=== PATIENT | female | born 1940 | race Caucasian/White ===

== ENCOUNTER → 2019-08-28 12:09 | Outpatient (BNVA) | payer MEDICARE, SELFPAY | PROVIDERS: Family Provider Nurse Practitioner Family; PCP Nurse Practitioner Family; Visit Provider Nurse Practitioner Family | DX: N63.0 Unspecified lump in unspecified breast (principal); H66.93 Otitis media, unspecified, bilateral; G89.29 Other chronic pain; I10 Essential (primary) hypertension; M54.6 Pain in thoracic spine; M54.5 Low back pain; M54.9 Dorsalgia, unspecified; R42 Dizziness and giddiness; E55.9 Vitamin D deficiency, unspecified; Z79.899 Other long term (current) drug therapy; E78.2 Mixed hyperlipidemia; R53.83 Other fatigue | CPT/HCPCS: 80053; 80061; 81001; 82306; 83036; 84443; 85025 ==

== ENCOUNTER 2019-09-02 14:36 | Emergency (ER) | payer MEDICARE, SELFPAY ==
[2019-09-02 14:37] VITALS: BP 195/86; PULSE 73; RESP 16; TEMP 36.6; O2SAT 98; BMI 22.8
--- NOTE | 2019-09-02 14:44 | ED_ITS ---
Entered by Chrissie Card, acting as scribe for Kristi MengDO Sep 02, 2019 14:36 HPI - Dizziness General: Chief Complaint: Dizziness Stated Complaint: DIZZY; HYPERTENSION Time Seen by Provider: 09/02/19 14:42 Source: patient Mode of arrival: EMS Limitations: no limitations History of Present Illness: HPI Narrative: 79 yo f came to the er by [facility] for dizziness and HTN. 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 Pt states that she has been having high blood pressure this morning. Pt noticed this morning that the room was spinning, pt said that she has had a ear infection and has not been getting any better and has been on 2 rounds of antibiotics and has not been doing any good. Pt said that with being dizzy she felt a little weird in her head, but wouldn't call it a headache. MD elicited complaint: dizziness and other (htn) Pertinent past history: inner ear problems (ear infection ) Onset (ago): day(s) (this morning) Timing: sudden onset Severity: mild Description: room spinning Context: change in medication (for ear infection ) History of similar symptoms: No Exacerbating factors: movement/ambulation and standing Relieving factors: remaining still Associated symptoms: Reports no associated symptoms and headache(s) (mild); Denies chest pain, chills, nausea or vomiting Associated neuro symptoms: Reports no associated symptoms Review of Systems General: Reports: other (negative unless marked) Const: Denies: fever, chills or fatigue Eyes: Reports: other ENMT: Denies: throat pain Card: Denies: chest pain or swelling of feet/ankles Resp: Reports: shortness of breath (mild) GI: Denies: abdominal pain, nausea, vomiting, diarrhea, constipation or blood in stool : Denies: difficulty urinating Musc: Denies: back pain or extremity swelling Skin/Breast: Denies: rash Neuro: Reports: headache (mild) and dizziness PFSH ED PFSH: Medical History Anxiety Essential hypertension Surgical History S/P gastric surgery Social History Smoking and tobacco status: never smoked Second hand smoke exposure: No Smoking risk assessment/counseling performed?: No Alcohol intake: never Desire information about alcohol rehabilitation?: No Counseling given: No Desire information about substance/drug rehabilitation?: No Counseling given: No Physical Exam Const: COMMON NORMALS: no apparent distress and oriented x3 GENERAL APPEARANCE: cooperative; not in distress HENMT: COMMON NORMALS: normocephalic HEAD & SCALP: normal to inspection and normocephalic MOUTH: oral and palatal mucosa normal and lip normal THROAT: posterior oropharynx normal and tonsils normal Neck/C-Spine: COMMON NORMALS: full ROM, no lymphadenopathy, supple and no meningeal signs GENERAL: Yes normal visual inspection and Yes trachea midline Chest: COMMONS NORMALS: inspection of chest normal Resp: COMMON NORMALS: normal respiratory effort, no retractions and clear to auscultation bilaterally EFFORT & INSPECTION: Yes able to speak in complete sentences and No respiratory distress AUSCULTATION: clear to auscultation bilaterally, no rales, no rhonchi and no wheezes Cardio: COMMON NORMALS: regular rate, regular rhythm, S1 normal heart sound and S2 normal heart sound PALPATION: normal PMI RATE: regular rate RHYTHM: regular rhythm HEART SOUNDS: S1 normal and S2 normal PERIPHERAL PULSES: radial pulses present and dorsalis pedis pulses present GI: COMMON NORMALS: normal to inspection, nondistended, normoactive bowel sounds and soft to palpation INSPECTION: Yes normal to inspection AUSCULTATION: Yes normoactive bowel sounds PALPATION: Yes soft RECTAL EXAM: deferred : COMMON NORMALS: Yes no CVA tenderness BLADDER/KIDNEY EXAM: Yes no CVA tenderness Back/Pelvis: COMMON NORMALS: no CVA tenderness Extremity: COMMON NORMALS: normal to inspection, full ROM, normal capillary refill, no calf tenderness and no pedal edema Neuro: COMMON NORMALS: oriented x3, CN's II-XII intact bilaterally, moves all extremities and no focal motor deficits MENINGEAL SIGNS: Yes no meningeal signs Skin: COMMON NORMALS: no rashes or lesions noted GENERAL SKIN EXAM: no rashes or lesions noted Course Vital Signs: Vital signs: Vital Signs Temperature 97.9 F 09/02/19 14:37 Pulse Rate 73 09/02/19 14:37 Respiratory Rate 16 09/02/19 14:37 Blood Pressure 195/86 09/02/19 14:37 Pulse Oximetry 98 09/02/19 14:37 MDM - Dizziness MDM Narrative: Medical decision making narrative: pt has some signs of sinusits on ct but no clinical symptoms, she has vertigo however so I will refer her to ENT and try her on meclizine, her bp is 126/72. Lab Data: Attestation: I reviewed the patient's lab results. Labs: Lab Results 09/02/19 09/02/19 09/02/19 Range/Units 13:35 13:35 13:35 WBC 6.4 (4.0-10.0) 10^3/ uL RBC 4.43 (4.1-5.3) 10^6/u L Hgb 13.5 (11.5-15.3) g/dL Hct 41.1 (37.0-47.0) % MCV 92.8 (81-99) fL MCH 30.5 (28.0-34.0) pg MCHC 32.8 (30.0-36.0) g/dL RDW 13.1 (12.1-15.1) % Plt Count 343 (130-400) 10^3/c mm MPV 10.2 (7.4-10.4) fL Neut % (Auto) 63.5 % Lymph % (Auto) 22.7 % [place] % (Auto) 8.3 % Eos % (Auto) 4.4 % Baso % (Auto) 0.9 % Neut # (Auto) 4.0 (1.8-7.7) 10^3/u L Lymph # (Auto) 1.4 (0.8-4.8) 10^3/u L [place] # (Auto) 0.5 (0.2-0.9) 10^3/u L Eos # (Auto) 0.3 (0.0-0.8) 10^3/u L Baso # (Auto) 0.1 (0.0-0.1) 10^3/u L Nucleated RBC % (a uto) 0 % Nucleated RBCs # 0.0 /100WBC Sodium 137 (136-145) mmol/L Potassium 4.5 (3.5-5.1) mmol/L Chloride 99 (98-107) mmol/L Carbon Dioxide 28 (22-29) mmol/L Anion Gap 14.5 (5-19) BUN 14 (8-23) mg/dL Creatinine 0.9 (0.5-0.9) mg/dL Glucose 122 H (65-115) mg/dL Calculated Osmolal ity 282 L (285-295) mOsm/k g Calcium 10.1 (8.5-10.5) mg/dL Total Bilirubin 0.3 (0.15-1.2) mg/dL AST 19 (0-32) U/L ALT 10 (0-33) U/L Alkaline Phosphata se 82 (35-105) IU/L Troponin T Baselin e 7 (0-10) ng/mL Total Protein 7.2 (6.6-8.7) g/dL Albumin 4.7 (3.5-5.2) g/dL Globulin 2.5 (1.3-4.6) g/dL Imaging Data^: CXR: Radiologist's impression: [place] [address] XRay Report Signed Patient: Yaquelin Arango #: [id number] : 1Acct#:[id number] Age/Sex: 79 / FADM Date: 09/02/19 Loc: [facility]/Bed: Attending Dr: Ordering Provider/Ordering MD: Kristi Meng DO Date of Service: 09/02/19 Procedure(s): XR chest 1V portable [id number] Accession Number(s): [id number] Report Number: [id number] PROCEDURE INFORMATION: Exam: XR Chest, 1 View Exam date and time: 09/02/2019 2:55 PM Age: 79 years old Clinical indication: Shortness of breath and other: Dizzy; Additional info: Shortnes of breath TECHNIQUE: Imaging protocol: XR of the chest Views: 1 view. COMPARISON: CR Chest 1 [place] [id number] 03/09/2018 12:42 PM FINDINGS: Lungs: There is mild hyperinflation with unchanged coarse interstitial markings. No focal consolidation. Pleural space: No pleural effusion. No pneumothorax. Heart/Mediastinum: Unchanged tortuosity of the descending thoracic aorta. No cardiomegaly. Bones/joints: Unremarkable for technique. XR/XR chest 1V portable [id number] IMPRESSION: No acute findings. Dictated By:Luis Gaitan MD Signed By:Luis Gaitan MDSigned Date/Time:09/02/19 1533 DD/ 1532 CT Head: Radiologist's impression: [address] [place] [address] CT Scan Report Signed Patient: Yaquelin Arango #: [id number] : 1Acct#:[id number] Age/Sex: 79 / FADM Date: 09/02/19 Loc: [facility]/Bed: Attending Dr: Ordering Provider/Ordering MD: Kristi Meng DO Date of Service: 09/02/19 Procedure(s): CT head wo con* [id number] Accession Number(s): [id number] Report Number: [id number] PROCEDURE INFORMATION: Exam: CT Head Without Contrast Exam date and time: 09/02/2019 3:19 PM Age: 79 years old Clinical indication: Dizziness; Prior surgery; Surgery date: 1-6 months; Surgery type: Orbit TECHNIQUE: Imaging protocol: Computed tomography of the head without contrast. Total DLP: 799.99 mGy-cm Radiation optimization: All CT scans at this facility use at least one of these dose optimization techniques: automated exposure control; mA and/or kV adjustment per patient size (includes targeted exams where dose is matched to clinical indication); or iterative reconstruction. COMPARISON: CT head wo con* [id number] 03/09/2018 2:20 PM FINDINGS: Brain: There is no evidence of acute intracranial hemorrhage, midline shift or mass effect. There are stable scattered and confluent hypoattenuating regions within the subcortical and periventricular white matter, which are non specific and are most commonly associated with chronic microvascular ischemic change. Ventricles: There is unchanged parenchymal volume loss with compensatory prominence of the ventricles and CSF containing spaces. Bones/joints: No acute fracture. Postoperative changes involving the right orbit are again noted. Sinuses: There is mild pansinus mucosal thickening with small air-fluid levels within the right maxillary and sphenoid sinuses. Mastoid air cells: Visualized mastoid air cells are well aerated. Orbits: Postoperative change involving the right orbit is again noted. Soft tissues: Unremarkable. Vasculature: Atherosclerotic calcifications are noted. Other findings: There is no CT evidence of an acute transcortical infaction. CT/CT head wo con* [id number] IMPRESSION: 1. Essentially stable examination without CT evidence of an acute intracranial process. 2. Pansinus mucosal thickening with small air-fluid levels within the right maxillary and sphenoid sinuses. Findings may reflect a component of acute on chronic inflammatory or infectious change versus a small amount of residual postoperative hemorrhage. Radiation Dose CTDIVOL = (mGy): DLP = 799.99 (mGy-cm) Dictated By:Luis Gaitan MD Signed By:Luis Gaitan MDSigned Date/Time:09/02/191553 DD/ 52 Discharge Plan Discharge Patient Disposition: Home, Self-Care Clinical Impression: Essential hypertension, Benign paroxysmal positional vertigo Condition: Stable Prescriptions: New meclizine 25 mg tablet 50 mg PO TID PRN (Reason: dizziness) Qty: 60 RF: 0 No Action montelukast 10 mg tablet 10 mg PO DAILY PRN (Reason: unknown) RF: 0 propranolol 40 mg tablet 40 mg PO BID RF: 0 Colace 100 mg Capsule 100 mg PO BID RF: 0 Calcium Citrate + D 315-200 mg-unit Tablet 1 tab PO BID RF: 0 Probiotic 3 billion cell Capsule 3,000 mmu cells PO DAILY RF: 0 Bariatric Multivitamins 45 mg iron- 800 mcg-120 mcg Capsule 1 cap PO DAILY RF: 0 Discharge Orders: Discharge Order (Routine); Ordered 09/02/19 Ordered By: Kristi Meng Referrals: Raquel Buenrostro FNP [Family Provider] - 1-3 days Manda Stiles FNP [Primary Care Provider] - Discharge Diet: Advance as tolerated Discharge Activity: Increase activity as tolerated Patient Instructions: Benign Paroxysmal Positional Vertigo (ED) Activity Restrictions/Additional Instructions: no driving while you have the symptoms. return if worse, any problem, any change, Coding Level of Care Code ED Phone Screener for Chg Fwd Exam Comprehensive The documentation recorded by the Kyaw horne Stephanie Lyn, accurately reflects the service I personally performed and the decisions made by Taqueria bryant Sonia M, DO Sep 02, 2019 14:36
--- NOTE | 2019-09-02 14:52 | CTR_ITS ---
PROCEDURE INFORMATION: Exam: CT Head Without Contrast Exam date and time: 09/02/2019 3:19 PM Age: 79 years old Clinical indication: Dizziness; Prior surgery; Surgery date: 1-6 months; Surgery type: Orbit TECHNIQUE: Imaging protocol: Computed tomography of the head without contrast. Total DLP: 799.99 mGy-cm Radiation optimization: All CT scans at this facility use at least one of these dose optimization techniques: automated exposure control; mA and/or kV adjustment per patient size (includes targeted exams where dose is matched to clinical indication); or iterative reconstruction. COMPARISON: CT head wo con* [id number] 03/09/2018 2:20 PM FINDINGS: Brain: There is no evidence of acute intracranial hemorrhage, midline shift or mass effect. There are stable scattered and confluent hypoattenuating regions within the subcortical and periventricular white matter, which are non specific and are most commonly associated with chronic microvascular ischemic change. Ventricles: There is unchanged parenchymal volume loss with compensatory prominence of the ventricles and CSF containing spaces. Bones/joints: No acute fracture. Postoperative changes involving the right orbit are again noted. Sinuses: There is mild pansinus mucosal thickening with small air-fluid levels within the right maxillary and sphenoid sinuses. Mastoid air cells: Visualized mastoid air cells are well aerated. Orbits: Postoperative change involving the right orbit is again noted. Soft tissues: Unremarkable. Vasculature: Atherosclerotic calcifications are noted. Other findings: There is no CT evidence of an acute transcortical infaction. CT/CT head wo con* [id number] IMPRESSION: 1. Essentially stable examination without CT evidence of an acute intracranial process. 2. Pansinus mucosal thickening with small air-fluid levels within the right maxillary and sphenoid sinuses. Findings may reflect a component of acute on chronic inflammatory or infectious change versus a small amount of residual postoperative hemorrhage. Radiation Dose CTDIVOL = (mGy): DLP = 799.99 (mGy-cm)
--- NOTE | 2019-09-02 14:52 | XRR_ITS ---
PROCEDURE INFORMATION: Exam: XR Chest, 1 View Exam date and time: 09/02/2019 2:55 PM Age: 79 years old Clinical indication: Shortness of breath and other: Dizzy; Additional info: Shortnes of breath TECHNIQUE: Imaging protocol: XR of the chest Views: 1 view. COMPARISON: CR Chest 1 [place] [id number] 03/09/2018 12:42 PM FINDINGS: Lungs: There is mild hyperinflation with unchanged coarse interstitial markings. No focal consolidation. Pleural space: No pleural effusion. No pneumothorax. Heart/Mediastinum: Unchanged tortuosity of the descending thoracic aorta. No cardiomegaly. Bones/joints: Unremarkable for technique. XR/XR chest 1V portable [id number] IMPRESSION: No acute findings.
--- NOTE | 2019-09-02 14:53 | ECG_ITS ---
Measurements Intervals [place] Rate: 66 P: 41 TX: 185 QRS: 11 QRSD: 69 T: 53 QT: 392 QTc: 412 SINUS RHYTHM Compared to ECG 03/09/2018 12:36:47 No significant changes Electronically Signed On 09-03-2019 17:20:46 CDT by Jewel Hu M.D. [email or web address]
[2019-09-02] MEDS: nitroglycerin 0.4 mg sublingual Tablet SUBLINGUAL (15:09)
[2019-09-02 15:13] LABS: Basophils # 0.1 10^3/uL (0.0-0.1); Basophils % 0.9 %; Eosinophils # 0.3 10^3/uL (0.0-0.8); Eosinophils % 4.4 %; Hematocrit 41.1 % (37.0-47.0); Hemoglobin 13.5 g/dL (11.5-15.3); Lymphocytes # 1.4 10^3/uL (0.8-4.8); Lymphocytes % 22.7 %; Mean Corpuscular HGB Conc 32.8 g/dL (30.0-36.0); Mean Corpuscular Hemoglobin 30.5 pg (28.0-34.0); Mean Corpuscular Volume 92.8 fL (81-99); Mean Platelet Volume 10.2 fL (7.4-10.4); Monocytes # 0.5 10^3/uL (0.2-0.9); Monocytes % 8.3 %; Neutrophils % 63.5 %; Nucleated Red Blood Cells % 0 %; Platelet Count 343 10^3/cmm (130-400); Red Blood Count 4.43 10^6/uL (4.1-5.3); Red Cell Distribution Width 13.1 % (12.1-15.1); White Blood Count 6.4 10^3/uL (4.0-10.0)
[2019-09-02 15:38] LABS: Alanine Aminotransferase 10 U/L (0-33); Albumin Level 4.7 g/dL (3.5-5.2); Alkaline Phosphatase 82 IU/L (35-105); Anion Gap 14.5 (5-19); Aspartate Amino Transferase 19 U/L (0-32); Blood Urea Nitrogen 14 mg/dL (8-23); Calcium 10.1 mg/dL (8.5-10.5); Carbon Dioxide 28 mmol/L (22-29); Chloride 99 mmol/L (98-107); Globulin 2.5 g/dL (1.3-4.6); Glucose 122 mg/dL (65-115); Osmolality Calculated 282 mOsm/kg (285-295); Potassium 4.5 mmol/L (3.5-5.1); Sodium 137 mmol/L (136-145); Total Bilirubin 0.3 mg/dL (0.15-1.2); Total Protein 7.2 g/dL (6.6-8.7)
[2019-09-02 15:39] LABS: Troponin(5th) Baseline 7 ng/mL (0-10)
[2019-09-02 15:52] LABS: Add Urine Microscopic? NO
[2019-09-02 16:02] LABS: Urine Appearance Clear (CLEAR); Urine Color Yellow (Yellow); pH Urine 6.5 (5-7)
[2019-09-02 16:03] LABS: Bilirubin Urine Neg (NEGATIVE); Blood Urine Neg (Negative); Glucose Urine UA Norm (Normal); Ketones Urine Negative (Negative); Leukocyte Esterase Urine Negative (Negative); Nitrate Urine Negative (Negative); Protein Urine Neg (Negative); Urobilinogen Urine Norm (Negative)
[2019-09-02 16:07] LABS: Troponin 5 2HR 6.39 ng/mL (0-10)
[2019-09-02 16:13] LABS: Troponin 5 2HR Delta -0.61 ABS# (0-10)
[2019-09-02 16:19] VITALS: BP 126/85; PULSE 70; RESP 16; O2SAT 97
== END 2019-09-02 16:20 | disposition home or self-care (01) ==
PROVIDERS: Emergency Provider Emergency Medicine; Family Provider Nurse Practitioner Family; PCP Nurse Practitioner Family
DX: H81.10 Benign paroxysmal vertigo, unspecified ear (principal); I10 Essential (primary) hypertension
CPT/HCPCS: 12345; 36415; 70450; 71045; 80053; 81003; 84484; 85025; 93005; 99282; 99284

== ENCOUNTER → 2020-03-11 11:41 | Outpatient (BNVA) | payer MEDICARE, SELFPAY | PROVIDERS: Family Provider Nurse Practitioner Family; PCP Nurse Practitioner Family; Visit Provider Nurse Practitioner Family | DX: K92.1 Melena (principal) | CPT/HCPCS: 80053; 82272; 85025 ==

== ENCOUNTER 2020-03-31 08:57 | Outpatient (CLI) | payer MEDICARE, SELFPAY ==
--- NOTE | 2020-03-31 09:30 | MM_ITS ---
WS: [id number] BILATERAL DIGITAL DIAGNOSTIC MAMMOGRAM MAMMOGRAPHY WITH CAD CLINICAL INFORMATION: Breast tendernes HISTORY: Right breast pain COMPARISON: None. TECHNIQUE: Bilateral CC, MLO, and ML views. FINDINGS: The breasts are composed of heterogeneous fibroglandular density, which can limit the detection of sm all underlying mass lesions. Vascular calcification. Tiny punctate calcifications. Asymmetric density upper outer LEFT breast measuring 6 mm best seen on the ML view. Recommend spot compression views an d ultrasound for further evaluation. ULTRASOUND BREAST RIGHT TECHNIQUE: Ultrasound right breast focused area of concern. CLINICAL INFORMATION: Breast tenderness COMPARISON: None. FINDINGS: Ultrasound right breast upper outer quadrant patient directed area of pain. Tiny cyst at the 9:00 pos ition near the areola in the area of pain measuring 3.3 x 1.9 x 4.8 mm. Additional smaller cyst measu ring 2.1 x 2.5 x 2.4 mm. No suspicious abnormalities. No lesions to target for biopsy. MM/[place] [id number] IMPRESSION: BI-RADS: 0-Incomplete: Need additional imaging evaluation FOLLOW UP: Need Additional Imaging Recommend LEFT diagnostic mammography and ultrasound for evaluation 6 mm asymme tric density left breast
--- NOTE | 2020-03-31 10:15 | US_ITS ---
WS: [id number] BILATERAL DIGITAL DIAGNOSTIC MAMMOGRAM MAMMOGRAPHY WITH CAD CLINICAL INFORMATION: Breast tendernes HISTORY: Right breast pain COMPARISON: None. TECHNIQUE: Bilateral CC, MLO, and ML views. FINDINGS: The breasts are composed of heterogeneous fibroglandular density, which can limit the detection of sm all underlying mass lesions. Vascular calcification. Tiny punctate calcifications. Asymmetric density upper outer LEFT breast measuring 6 mm best seen on the ML view. Recommend spot compression views an d ultrasound for further evaluation. ULTRASOUND BREAST RIGHT TECHNIQUE: Ultrasound right breast focused area of concern. CLINICAL INFORMATION: Breast tenderness COMPARISON: None. FINDINGS: Ultrasound right breast upper outer quadrant patient directed area of pain. Tiny cyst at the 9:00 pos ition near the areola in the area of pain measuring 3.3 x 1.9 x 4.8 mm. Additional smaller cyst measu ring 2.1 x 2.5 x 2.4 mm. No suspicious abnormalities. No lesions to target for biopsy. US/US breast RT limited* [id number] IMPRESSION: BI-RADS: 0-Incomplete: Need additional imaging evaluation FOLLOW UP: Need Additional Imaging Recommend LEFT diagnostic mammography and ultrasound for evaluation 6 mm asymme tric density left breast
== END 2020-03-31 08:58 | disposition home or self-care (01) ==
LOC: RADSHAW 08:59
PROVIDERS: PCP Nurse Practitioner Family; Visit Provider Nurse Practitioner Family
DX: N64.4 Mastodynia (principal); N64.89 Other specified disorders of breast
CPT/HCPCS: 76642; 77066

== ENCOUNTER 2020-04-24 09:17 | Outpatient (CLI) | payer MEDICARE, SELFPAY ==
--- NOTE | 2020-04-24 09:30 | MM_ITS ---
WS: [id number] LEFT DIGITAL MAMMOGRAPHY WITH CAD CLINICAL INFORMATION: valuation 6 mm asymmetric density left breast COMPARISON: March 31, 2020 TECHNIQUE: 1 views of the left breast were obtained. FINDINGS: Scattered fibroglandular densities of the left breast. Vascular calcification. Again seen is the 6 mm asymmetric density upper outer left breast. This persists on spot compression views. Ultrasound is p ending. ULTRASOUND BREAST LEFT TECHNIQUE: Ultrasound left breast focused area of concern. CLINICAL INFORMATION: valuation 6 mm asymmetric density left breast COMPARISON: None. FINDINGS: Ultrasound left breast 10 to 2:00 position. No cystic or solid lesions. Dense underlying parenchymal tissue. No pathologic lesions. No lesions to target for biopsy. MM/[place] [id number] IMPRESSION: BI-RADS: 2-Benign FOLLOW UP: 1 Year Follow-up Recommend return to annual screening mammography.
--- NOTE | 2020-04-24 10:15 | US_ITS ---
WS: [id number] LEFT DIGITAL MAMMOGRAPHY WITH CAD CLINICAL INFORMATION: valuation 6 mm asymmetric density left breast COMPARISON: March 31, 2020 TECHNIQUE: 1 views of the left breast were obtained. FINDINGS: Scattered fibroglandular densities of the left breast. Vascular calcification. Again seen is the 6 mm asymmetric density upper outer left breast. This persists on spot compression views. Ultrasound is p ending. ULTRASOUND BREAST LEFT TECHNIQUE: Ultrasound left breast focused area of concern. CLINICAL INFORMATION: valuation 6 mm asymmetric density left breast COMPARISON: None. FINDINGS: Ultrasound left breast 10 to 2:00 position. No cystic or solid lesions. Dense underlying parenchymal tissue. No pathologic lesions. No lesions to target for biopsy. US/US breast LT limited* [id number] IMPRESSION: BI-RADS: 2-Benign FOLLOW UP: 1 Year Follow-up Recommend return to annual screening mammography.
== END 2020-04-24 09:18 | disposition home or self-care (01) ==
LOC: RADSHAW 09:21
PROVIDERS: PCP Nurse Practitioner Family; Visit Provider Nurse Practitioner Family
DX: R92.8 Other abnormal and inconclusive findings on diagnostic imaging of breast (principal); N64.89 Other specified disorders of breast
CPT/HCPCS: 76642; 77065

== ENCOUNTER → 2020-05-02 10:45 | Outpatient (BNVA) | payer MEDICARE, SELFPAY | PROVIDERS: PCP Nurse Practitioner Family; Visit Provider Nurse Practitioner Family | DX: Z11.59 Encounter for screening for other viral diseases (principal); K92.1 Melena | CPT/HCPCS: 87635 ==

== ENCOUNTER 2020-05-05 07:44 | Day surgery (SDC) | payer MEDICARE, SELFPAY ==
[2020-05-01 10:54] VITALS: BMI 22.6
[2020-05-05] MEDS: sodium chloride 0.9% 1,000 ML 30 ML IV (07:40)
[2020-05-05 08:13] VITALS: BP 169/98; PULSE 68; RESP 18; TEMP 37.4; O2SAT 99
--- NOTE | 2020-05-05 08:34 | ANES.PREANE2 ---
Pre-Anesthetic Assessment Pre-Anesthetic Assessment: Height/Weight: Height 1.55 m Weight 54.431 kg Temp Pulse Resp BP Pulse Ox 99.3 F 68 18 169/98 99 05/05/20 08:13 05/05/20 08:13 05/05/20 08:13 05/05/20 08:13 05/05/20 08:13 Preop Diagnosis: melena Proposed Procedure: Operation Date: 05/05/20 09:00 Proposed Procedures p EGD 82647 K92.1(Not Applicable) - Enrique Gómez MD Familial anesthetic complications: None Was Beta Jeimy taken within 24 hours: Yes Last intake: Intake Last Liquid Date 05/04/20 Last Liquid Time 17:00 Last Solid Date 05/04/20 Last Solid Time 17:00 Social: Social History: No alcohol and No tobacco Exam: Pre-Anes Outpt Exam: alert, oriented x 3, clear to auscultation bilaterally and regular rate & rhythm Airway: Cervical ROM: WNL MP: 2 Dentition: False CV/HEM: CV/HEM: HTN Comments: mitral valve prolapse on propanolol, denies any espidoes of syncope,SOB, or chest pain GI: Comments: s/p gastric surgery Anesthetic Plan: ASA status: 2 Anesthesia: MAC Risk of > 500 ml blood loss (7ml/kg in children): No Meds/Allergies Current Medications: Current Medications Generic Name Dose Route Start Last Admin Trade Name Freq PRN Reason Stop Dose Admin Sodium Chloride 500 mls @ 999 mls /hr 05/05/20 07:52 05/05/20 08:12 Sodium Chloride 0.9% IV 999 mls/hr .Q31M PRN Administration HYPOTENSION PFSH Anesthesia PFSH: Medical History Anxiety Essential hypertension Surgical History S/P gastric surgery Social History (Updated 04/29/20 @ 11:[address]) Smoking and tobacco status: never smoked Second hand smoke exposure: No Smoking risk assessment/counseling performed?: No Alcohol intake: never Desire information about alcohol rehabilitation?: No Counseling given: No Desire information about substance/drug rehabilitation?: No Counseling given: No History of recent travel: No Data Anesthesia Cardiac Studies: No Data to Display
--- NOTE | 2020-05-05 09:04 | W.PM.OPSUD ---
Surgery/Procedure H&P Update DATE OF PROCEDURE: May 05, 2020 DATE H&P PERFORMED: 04/29/20 PREOP DIAGNOSIS: melena PLANNED PROCEDURE: Operation Date: 05/05/20 09:00 Proposed Procedures p EGD 24204 K92.1(Not Applicable) - Enrique Gómez MD
[2020-05-05 09:18] VITALS: BP 147/74; PULSE 65; RESP 18; TEMP 36.1; O2SAT 98
[2020-05-05 09:31] VITALS: BP 155/86; PULSE 57; RESP 18; O2SAT 97
--- NOTE | 2020-05-05 14:12 | ANE.PACU2 ---
Inpatient post-anesthesia follow up: Airway intact: Yes Vital signs: Temperature 97 F Pulse Rate 57 Respiratory Rate 18 Blood Pressure 155/86 Pulse Oximetry 97 Oxygen Delivery Me thod Room Air Oxygen Flow Rate 3 Fraction of Inspir ed Oxygen Hydration adequate: Yes Nausea and vomiting: No Pain level: 1 Mental status: Baseline
== END 2020-05-05 09:55 | disposition home or self-care (01) ==
PROVIDERS: PCP Nurse Practitioner Family; Visit Provider Internal Medicine
PROC: 0DJ08ZZ Inspection of Upper Intestinal Tract, Via Natural or Artificial Opening Endoscopic (ICD-10-PCS; CPT 43235; principal; 2020-05-05 09:00)
DX: K92.1 Melena (principal); I34.1 Nonrheumatic mitral (valve) prolapse; I10 Essential (primary) hypertension; Z90.3 Acquired absence of stomach [part of]
CPT/HCPCS: 12345; 43235; J2704; J7030; J7040

== ENCOUNTER → 2020-09-11 10:30 | Outpatient (BNVA) | payer MEDICARE, SELFPAY | PROVIDERS: PCP Nurse Practitioner Family; Visit Provider Nurse Practitioner Family | DX: I10 Essential (primary) hypertension (principal); E55.9 Vitamin D deficiency, unspecified; E78.2 Mixed hyperlipidemia; Z79.899 Other long term (current) drug therapy | CPT/HCPCS: 80053; 80061; 81003; 82306; 83036; 84443; 85025 ==

== ENCOUNTER → 2022-01-20 10:19 | Outpatient (BNVA) | payer MEDICARE, SELFPAY | PROVIDERS: PCP Nurse Practitioner Family; Visit Provider Nurse Practitioner | DX: E78.2 Mixed hyperlipidemia (principal); E55.9 Vitamin D deficiency, unspecified; I10 Essential (primary) hypertension | CPT/HCPCS: 80053; 80061; 81000; 82306; 83036; 84443; 85025 ==

== ENCOUNTER → 2022-04-29 13:47 | Outpatient (BNVA) | payer MEDICARE, SELFPAY | PROVIDERS: PCP Nurse Practitioner; Visit Provider Surgery | DX: K64.4 Residual hemorrhoidal skin tags (principal) | CPT/HCPCS: 99203 ==

== ENCOUNTER → 2022-06-01 10:47 | Outpatient (BNVA) | payer MEDICARE, SELFPAY | PROVIDERS: PCP Nurse Practitioner; Visit Provider Specialist | DX: G30.9 Alzheimer's disease, unspecified (principal); F02.80 Dementia in other diseases classified elsewhere, unspecified severity, without behavioral disturbance, psychotic disturbance, mood disturbance, and anxiety | CPT/HCPCS: 96116; 99205 ==

== ENCOUNTER → 2022-09-08 12:24 | Outpatient (BNVA) | payer MEDICARE, SELFPAY | PROVIDERS: PCP Nurse Practitioner; Visit Provider Specialist | DX: G30.9 Alzheimer's disease, unspecified (principal); F02.80 Dementia in other diseases classified elsewhere, unspecified severity, without behavioral disturbance, psychotic disturbance, mood disturbance, and anxiety | CPT/HCPCS: 96116; 99214 ==

== ENCOUNTER → 2022-10-05 15:02 | Outpatient (BNVA) | payer MEDICARE, SELFPAY | PROVIDERS: PCP Nurse Practitioner; Visit Provider Nurse Practitioner Family | DX: R06.00 Dyspnea, unspecified (principal); I10 Essential (primary) hypertension; R53.83 Other fatigue; R00.1 Bradycardia, unspecified | CPT/HCPCS: 80053; 80061; 83880; 85025 ==

== ENCOUNTER 2022-12-15 15:31 | Outpatient (CLI) | payer MEDICARE, SELFPAY ==
--- NOTE | 2022-12-15 15:51 | XR_ITS ---
WS: [id number] Exam: XR chest 2V* [id number] Date/Time of Exam: 12/15/2022 3:54 PM Reason For Exam: R06.00 - Dyspnea, unspecified Comparison 09/02/2019. The lungs are hyperinflated and clear. Normal cardiomediastinal silhouette. Regional bony elements ar e intact. Single low-grade compression deformity of the lower T-spine that may be T12. Increased thor acic kyphosis. XR/XR chest 2V* [id number] IMPRESSION: 1. Pulmonary hyperinflation which may indicate obstructive lung disease. No acu te cardiopulmonary finding.
== END 2022-12-15 15:32 | disposition home or self-care (01) ==
PROVIDERS: PCP Nurse Practitioner; Visit Provider Nurse Practitioner Family
DX: R06.00 Dyspnea, unspecified (principal); R91.8 Other nonspecific abnormal finding of lung field
CPT/HCPCS: 71046

== ENCOUNTER → 2023-02-28 15:09 | Outpatient (BNVA) | payer MEDICARE, SELFPAY | PROVIDERS: PCP Nurse Practitioner Family; Visit Provider Specialist | DX: R29.90 Unspecified symptoms and signs involving the nervous system (principal); G30.9 Alzheimer's disease, unspecified; F02.80 Dementia in other diseases classified elsewhere, unspecified severity, without behavioral disturbance, psychotic disturbance, mood disturbance, and anxiety | CPT/HCPCS: 99214 ==

== ENCOUNTER → 2023-03-02 17:22 | Outpatient (BNVA) | payer MEDICARE, SELFPAY | PROVIDERS: PCP Nurse Practitioner Family; Visit Provider Internal Medicine Pulmonary Disease | DX: J44.9 Chronic obstructive pulmonary disease, unspecified (principal); J30.1 Allergic rhinitis due to pollen; J82.83 Eosinophilic asthma; Z87.891 Personal history of nicotine dependence | CPT/HCPCS: 36415; 82785; 86003; 99204 ==

== ENCOUNTER 2023-03-16 13:42 | Outpatient (CLI) | payer MEDICARE, SELFPAY ==
[2023-03-16 14:27] VITALS: BP 143/95
== END 2023-03-16 13:43 | disposition home or self-care (01) ==
PROVIDERS: PCP Nurse Practitioner Family; Visit Provider Internal Medicine Pulmonary Disease
DX: R06.02 Shortness of breath (principal)
CPT/HCPCS: 94618

== ENCOUNTER → 2023-04-04 16:18 | Outpatient (BNVA) | payer MEDICARE, SELFPAY | PROVIDERS: PCP Nurse Practitioner Family; Visit Provider Nurse Practitioner Family | DX: I10 Essential (primary) hypertension (principal); E55.9 Vitamin D deficiency, unspecified; K64.4 Residual hemorrhoidal skin tags | CPT/HCPCS: 80053; 82306; 84443 ==

== ENCOUNTER 2023-06-02 08:00 | Outpatient (CLI) | payer MEDICARE, SELFPAY ==
--- NOTE | 2023-06-02 08:45 | USR_ITS ---
PROCEDURE INFORMATION: Exam: US Abdomen, Limited; Right Upper Quadrant Exam date and time: 06/02/2023 8:12 AM Age: 82 years old Clinical indication: Abdominal pain; Localized; Right upper quadrant (ruq); Additional info: R10.811 - right upper quadrant abdominal tenderness TECHNIQUE: Imaging protocol: Real time ultrasound of the abdomen with image documentation. Limited exam focused on the right upper quadrant. COMPARISON: No relevant prior studies available. FINDINGS: Liver: Normal. No masses. Gallbladder: Stones and sludge within the gallbladder. Biliary ducts: Normal. No stones. No dilation. Pancreas: Visualized pancreas is unremarkable. Right kidney: Normal. No mass. No hydronephrosis. US/US gall bladder [id number] IMPRESSION: Cholelithiasis.
== END 2023-06-02 08:01 | disposition home or self-care (01) ==
LOC: RAD 08:00
PROVIDERS: PCP Nurse Practitioner Family; Visit Provider Nurse Practitioner Family
DX: K80.20 Calculus of gallbladder without cholecystitis without obstruction (principal); R10.811 Right upper quadrant abdominal tenderness
CPT/HCPCS: 76705

== ENCOUNTER 2023-06-21 13:53 | Outpatient (CLI) | payer MEDICARE, SELFPAY ==
--- NOTE | 2023-06-21 14:15 | USCV_ITS ---
Yaquelin Arango Age: 83 Gender: F : 1940 Exam Date: 06/21/2023 14:41 Ordering Phys: Jose Rafael Charles MD Technologist: Irina Roberts [place]am Location: [facility] [place] [facility] [place] Indication: COPD, SOB BP: 142 / 78 HR: 70 Rhythm: Sinus Technical Quality: Adequate MEASUREMENTS (Male / Female) Normal Values 2D ECHO LV Diastolic Diameter PLAX 4.1 cm 4.2 - 5.9 / 3.9 - 5.3 cm LV Systolic Diameter PLAX 2.8 cm IVS Diastolic Thickness 1.2 cm 0.6 - 1.0 / 0.6 - 0.9 cm IVS Systolic Thickness 1.4 cm LVPW Diastolic Thickness 0.9 cm 0.6 - 1.0 / 0.6 - 0.9 cm LVPW Systolic Thickness 1.1 cm LVOT Diameter 2.0 cm LV Ejection Fraction 2D Teich 59.4 % LV Ejection Fraction MOD 2C 82.4 % LV Ejection Fraction 2C AL 82.9 % LA Diameter 3.4 cm LA Width 3.6 cm LA Height 4.3 cm RA Width 3.3 cm RA Height 3.9 cm Aorta at Sinotubular Diameter 2.2 cm IVC Diameter 1.3 cm M-MODE Aortic Annulus Diameter 2.3 cm LA Ao Ratio MM 1.5 MV E Point Septal Separation 0.6 cm DOPPLER AV Peak Velocity 188.0 cm/s LVOT Peak Velocity 130.0 cm/s AV Area Cont Eq vti 2.8 cm squared AV Area Cont Eq pk 2.2 cm squared MV Peak Velocity 114.0 cm/s MV Area PHT 3.3 cm squared Mitral E to A Ratio 0.7 MV E' Velocity 44.0 cm/s Mitral E to MV E' Ratio 10.1 Mitral E to LV E' Lateral Ratio 9.8 Mitral E to LV E' Septal Ratio 10.3 TR Peak Velocity 236.7 cm/s TR Peak Gradient 22.4 mmHg Right Atrial Pressure 5.0 mmHg Pulmonary Artery Systolic Pressu 27.4 mmHg PV Peak Velocity 109.0 cm/s RV Acceleration Time 0.1 s RV Ejection Time 0.3 s RV AcT/ET 0.4 FINDINGS Left Ventricle Left ventricle is normal size. LV systolic function is normal with EF of 60 to 65%. No regional wall motion normalities are seen. Grade 1 diastolic dysfunction Right Ventricle Normal in size and function Right Atrium Normal in size Left Atrium Normal in size Mitral Valve Structurally normal mitral valve. Mild mitral regurgitation. Aortic Valve Structurally normal aortic valve. No significant stenosis or regurgitation seen. Tricuspid Valve Mild tricuspid regurgitation. RVSP is normal. Pulmonic Valve Not well-visualized. Pericardium Normal Aorta Normal in size IVC Appears to be normal CONCLUSIONS LV systolic function is normal with EF of 60 to 65%. Grade 1 diastolic dysfunction. Mild mitral regurgitation. Mild tricuspid regurgitation. No comparison studies are available. Dillan Hall MD (Electronically Signed) Final Date: 25 June 2023 15:11 S
== END 2023-06-21 13:54 | disposition home or self-care (01) ==
LOC: RAD 13:53
PROVIDERS: PCP Nurse Practitioner Family; Visit Provider Internal Medicine Pulmonary Disease
DX: R07.89 Other chest pain (principal); J44.9 Chronic obstructive pulmonary disease, unspecified; I08.1 Rheumatic disorders of both mitral and tricuspid valves
CPT/HCPCS: 93306

== ENCOUNTER 2023-06-24 07:05 | Emergency (ER) | payer MEDICARE, SELFPAY ==
[2023-06-24 07:06] VITALS: BP 167/95; PULSE 73; RESP 18; TEMP 36.8; O2SAT 98; BMI 22.8
--- NOTE | 2023-06-24 07:09 | XRR_ITS ---
PROCEDURE INFORMATION: Exam: XR Chest Exam date and time: 06/24/2023 7:19 AM Age: 83 years old Clinical indication: Cough and dyspnea; Additional info: Dyspnea/cough TECHNIQUE: Imaging protocol: Radiologic exam of the chest. Views: 1 view. COMPARISON: CR XR chest 2V* [id number] 12/15/2022 3:53 PM FINDINGS: Lungs: Unremarkable. No consolidation. Pleural spaces: Unremarkable. No pleural effusion. No pneumothorax. Heart/Mediastinum: Unremarkable. No cardiomegaly. Bones/joints: Unremarkable. XR/XR chest 1V portable [id number] IMPRESSION: No acute findings.
--- NOTE | 2023-06-24 07:26 | ED_ITS ---
HPI - General Adult 2 General: Chief complaint: General Medical Stated complaint: Chest pain, Anxiety Time Seen by Provider: 06/24/23 07:08 Source: patient Mode of arrival: ambulatory History of Present Illness: 83-year-old female who presents to the e mergency room with complaints of rapid heart rate. She called EMS this morning complaining of chest discomfort and a rapid heart rate. When I asked why she had come in initially she was confused was not sure. She also states she was not sure who had called the ambulance on further questioning she states she had called the ambulance because she had a rapid heart rate and some chest discomfort they resolved evidently by the time EMS arrived per EMS report. She denies any discomfort or rapid heart rate now. She does relate she has a mitral valve prolapse. She also mention she is scheduled to have her gallbladder removed. She denied any abdominal pain bowel or bladder dysfunction when I seen her room. However noted that in the triage note she told him that she did have abdominal pain when I checked with the nurse regarding this the report was that she said she did have abdominal pain but it was her gallbladder it was scheduled to be removed and she did not need to be evaluated for that today. At this time she is awake and alert denying chest pain denying any orthopnea or shortness of breath but does states she had some shortness of breath earlier she has not had any fevers sweats or chills. Onset (ago): minute(s) Location: chest Severity: mild Pain Consistency: now resolved Relieving factors: none Exacerbating factors: none Associated symptoms: Reports confusion and palpitations; Deny chest pain, cough, diaphoresis, decreased appetite, dyspnea, fevers/chills, headache(s), malaise, nausea, rash, seizures, short of breath, syncope, vomiting, weakness or other Treatments prior to arrival: none Review of Systems 2 Const: Denies: fever(s), chills, malaise or diaphoresis Card: Reports: palpitations and irregular heart rhythm; Denies: chest pain or syncope Resp: Denies: dyspnea GI: Reports: abdominal pain; Denies: nausea or vomiting : Denies: dysuria, urinary frequency or urinary urgency Musc: Denies: neck pain or back pain Skin/Breast: Denies: rash Neuro: Reports: confusion; Denies: headache(s) [facility] ED 2 PFSH: Medical History Mitral valve prolapse Mixed hyperlipidemia Anxiety Essential hypertension Surgical History S/P bladder repair S/P gastric surgery Family History Mother Stroke Hypertension Denies family history of Diabetes Hyperlipidemia Lung disease Cancer Social History Smoking and tobacco/nicotine status: former use of tobacco/nicotine Quit status (tobacco/nicotine): has quit using Year quit tobacco: 2007 Former quit date comment: 0.5 ppd X 40 Second hand smoke exposure: No Alcohol intake: never Substance/Drug Use: never Adopted: No Lives independently: Yes Housing: House Do you think of yourself as: Straight/Heterosexual Current gender identity: Female Shirlene/Mosque: [employer] Physical Exam 2 Const: COMMON NORMALS: no acute distress GENERAL APPEARANCE: cooperative and comfortable ORIENTATION/CONSCIOUSNESS: Yes awake, Yes oriented to person, Yes oriented to place and Yes oriented to time HENMT: COMMON NORMALS: normocephalic, atraumatic and hearing grossly normal bilaterally HEAD & SCALP: normocephalic and atraumatic Resp: COMMON NORMALS: normal respiratory effort, No retractions, No use of accessory muscles and clear to auscultation bilaterally AUSCULTATION: clear to auscultation bilaterally Cardio: COMMON NORMALS: regular rate, regular rhythm and No murmurs present (Cardio) RATE: regular rate RHYTHM: regular rhythm GI: COMMON NORMALS: Soft to palpation and No hepatosplenomegaly present A USCULTATION: Yes normoactive bowel sounds PALPATION: Yes Soft to palpation, No Tenderness to palpation present (GI), No Guarding due to palpation present (GI) and Yes No hepatosplenomegaly present Extremity: COMMON NORMALS: normal to inspection, capillary refill normal, no clubbing, cyanosis or edema, no calf tenderness and no pedal edema Neuro: SENSORIUM/ORIENTATION: Yes oriented to person, Yes oriented to place and Yes oriented to time Skin: COMMON NORMALS: no rashes or lesions noted GENERAL SKIN EXAM: no rashes or lesions noted Course 2 Vital Signs: Vital signs: Vital Signs Temperature 98.2 F 06/24/23 07:06 Pulse Rate 75 06/24/23 11:00 Respiratory Rate 22 H 06/24/23 11:00 Blood Pressure 161/91 06/24/23 11:00 Pulse Oximetry 99 06/24/23 11:00 Oxygen Delivery Me thod Room Air 06/24/23 09:30 MDM - General Adult Medical Decision Making Her symptoms have completely resolved. Patient states she really did not want to come that she already get checked out by the EMS crew send had not wanted to come to the emergency room. EKG does not show any acute changes troponins are negative she had no further episodes of rapid heart rate since she arrived here. Will discharge the patient home set her up for an outpatient 48-hour Holter monitor and follow-up with her primary care doctor if she has any worsening or changes symptoms return. Medical Records I reviewed the patient's medical records. Lab Data I reviewed the patient's lab results. 06/24/23 05:55 06/24/23 05:55 Radiology Impressions Chest X-Ray 06/24/23 07:09 IMPRESSION: No acute findings. Laboratory Results WBC 7.07 10^3/uL (3.29-11.43) 06/24/23 05:55 RBC 4.48 10^6/uL (3.85-5.65) 06/24/23 05:55 Hgb 13.70 g/dL (11.27-16.99) 06/24/23 05:55 Hct 40.0 % (36-47) 06/24/23 05:55 MCV 89.3 fl (85-98) 06/24/23 05:55 MCH 30.6 pg (27-33) 06/24/23 05:55 MCHC 34.3 g/dL (30-55) 06/24/23 05:55 RDW 13.2 % (12.1-15.1) 06/24/23 05:55 Plt Count 339 10^3/cmm (157-399) 06/24/23 05:55 MPV 9.3 fL (7.4-10.4) 06/24/23 05:55 Neut % (Auto) 60.6 % 06/24/23 05:55 Lymph % (Auto) 22.3 % 06/24/23 05:55 Bartholomew % (Auto) 10.9 % 06/24/23 05:55 Eos % (Auto) 5.1 % 06/24/23 05:55 Baso % (Auto) 1.0 % 06/24/23 05:55 Neut # (Auto) 4.28 10^3/uL (1.8-7.7) 06/24/23 05:55 Lymph # (Auto) 1.6 10^3/uL (0.8-4.8) 06/24/23 05:55 Bartholomew # (Auto) 0.8 10^3/uL (0.2-0.9) 06/24/23 05:55 Eos # (Auto) 0.4 10^3/uL (0.0-0.8) 06/24/23 05:55 Baso # (Auto) 0.1 10^3/uL (0.0-0.1) 06/24/23 05:55 Nucleated RBC % (auto) 0 % 06/24/23 05:55 Nucleated RBCs # 0.0 /100WBC 06/24/23 05:55 Sodium 136 mmol/L (136-145) 06/24/23 05:55 Potassium 4.1 mmol/L (3.5-5.1) 06/24/23 05:55 Chloride 97 mmol/L (98-107) L 06/24/23 05:55 Carbon Dioxide 24 mmol/L (22-29) 06/24/23 05:55 Anion Gap 19.1 (5-19) H 06/24/23 05:55 BUN 8 mg/dL (8-23) 06/24/23 05:55 Creatinine 0.9 mg/dL (0.5-0.9) 06/24/23 05:55 GFR Calculation Not Reportable 06/24/23 05:55 Glucose 133 mg/dL (65-115) H 06/24/23 05:55 Calculated Osmolality 282 mOsm/kg (285-295) L 06/24/23 05:55 Calcium 10.2 mg/dL (8.5-10.5) 06/24/23 05:55 Total Bilirubin 0.5 mg/dL (0.15-1.2) 06/24/23 05:55 AST 22 U/L (0-32) 06/24/23 05:55 ALT 12 U/L (0-33) 06/24/23 05:55 Alkaline Phosphatase 86 U/L (35-105) 06/24/23 05:55 Troponin T Baseline 10 ng/L (0-10) 06/24/23 05:55 Troponin T 120 Minute 13.57 ng/L (0-10) H 06/24/23 07:46 Delta Troponin T 3.57 ABS# (0-10) 06/24/23 07:46 Total Protein 7.1 g/dL (6.6-8.7) 06/24/23 05:55 Albumin 4.6 g/dL (3.5-5.2) 06/24/23 05:55 Globulin 2.5 g/dL (1.3-4.6) 06/24/23 05:55 Urine Color Yellow (Yellow) 06/24/23 08:25 Urine Appearance Cloudy (CLEAR) A 06/24/23 08:25 Urine pH 9 (5-7) H 06/24/23 08:25 Ur Specific [place] 1.015 (1.005-1.030) 06/24/23 08:25 Urine Protein Trace (Negative) 06/24/23 08:25 Urine Glucose (UA) Norm (Normal) 06/24/23 08:25 Urine Ketones 1+ (Negative) H 06/24/23 08:25 Urine Blood Neg (Negative) 06/24/23 08:25 Urine Nitrate Negative (Negative) 06/24/23 08:25 Urine Bilirubin Neg (Negative) 06/24/23 08:25 Prot Sulfosalicylic Acd Negative (Negative) 06/24/23 08:25 Urine Urobilinogen Norm mg/dL (Negative) 06/24/23 08:25 Ur Leukocyte Esterase 2+ (Negative) H 06/24/23 08:25 Urine RBC 0-4 /hpf (0-2) H 06/24/23 08:25 Urine WBC 0-4 /hpf (0-5) H 06/24/23 08:25 Ur Squamous Epith Cells 0-4 /hpf (0-5) H 06/24/23 08:25 Amorphous Sediment Not Reportable 06/24/23 08:25 Urine Bacteria Y /hpf (NONE) 06/24/23 08:25 All radiology interpretation(s) finalized by discharge Discharge Plan Discharge Patient Disposition: Home Clinical Impression: Heart palpitations Condition: Stable Prescriptions: No Action cholecalciferol (vitamin D3) 125 mcg (5,000 unit) capsule 125 mcg PO DAILY albuterol sulfate [Ventolin HFA] 90 mcg/actuation HFA aerosol inhaler 1 inh inhalation QID PRN (Reason: shortness of breath or wheezing) Qty: 8.5 4RF nitroglycerin 0.4 mg tablet, sublingual 0.4 mg sublingual Q5M PRN (Reason: Chest Pain) Rx Instructions: do not exceed 3 doses per episode (DME) oxygen See Rx Instructions .Route .MEDSUPPLY Qty: 1 0RF Rx Instructions: pulse ox on RA with ambulation 83% pulse ox on 2 liters with ambulation 98% clopidogrel [Plavix] 75 mg tablet 75 mg PO DAILY Qty: 90 1RF galantamine 4 mg tablet 4 mg PO BID Qty: 6 0RF Rx Instructions: administer with AM and PM meals memantine [Namenda] 10 mg tablet 10 mg PO BID 90 Days Qty: 180 3RF calcium citrate-vitamin D3 [Calcium Citrate + D] 315-200 mg-unit Tablet 1 tab PO BID Bariatric Multivitamins 45 mg iron- 800 mcg-120 mcg Capsule 1 cap PO DAILY propranolol 10 mg tablet 10 mg PO BID lisinopril 30 mg tablet 30 mg PO DAILY montelukast 10 mg tablet 10 mg PO DAILY Discharge Orders: Discharge ED (Routine); Ordered 06/24/23 Ordered By: Trevin Cornelius Referrals: Diane Krueger FNP [Primary Care Provider] - Discharge Diet: Usual diet Discharge Activity: Increase activity as tolerated Patient Instructions: Opioid Safety, Pain Management Activity Restrictions/Additional Instructions: Thank you for choosing [facility] for your healthcare needs today. Please realize this is an emergency room and that we are providing you with a medical screening exam and this may not be complete and all inclusive of all the testing and or work up that you may need to determine your ailment or severity of your illness. It is very important that you follow up as instructed or that you return to the Emergency Department should you have concerns or if your condition changes or worsens in any way. You were seen today for complaints of palpitations your heart rhythm was normal while you are in the emergency room EKGs and troponins were unremarkable. We recommend that you have an outpatient Holter monitor to evaluate for episodes of rapid heart rate and follow-up with your primary care doctor. Coding Level of Care Code ED Basting Machine Operator for Rudi Mack
--- NOTE | 2023-06-24 07:27 | ECG_ITS ---
[facility] Test Date: 2023-06-24 Pat Name: Yaquelin Arango Department: Room: Gender: Female Road Maker: : 1940 Requested By: Trevin Erickson Order Number: [id number] Luis MD: Jaime Thompson M.D. Measurements Intervals [place] Rate: 71 P: 86 [place]: 175 QRS: 17 QRSD: 82 T: 51 QT: 372 QTc: 406 Interpretive Statements SINUS RHYTHM POSSIBLE RIGHT VENTRICULAR CONDUCTION DELAY [RSR (QR) IN V1/V2] SEPTAL MYOCARDIAL INFARCTION , OF INDETERMINATE AGE [40+ ms Q WAVE IN V1/V2] Compared to ECG 09/02/2019 15:35:44 Myocardial infarct finding now present Electronically Signed On 06-24-2023 16:37:13 CONVEYOR LOADER by Jaime Thompson M.D. [id number]
[2023-06-24 07:28] LABS: Basophils # 0.1 10^3/uL (0.0-0.1); Eosinophils # 0.4 10^3/uL (0.0-0.8); Eosinophils % 5.1 %; Lymphocytes # 1.6 10^3/uL (0.8-4.8); Lymphocytes % 22.3 %; Mean Corpuscular HGB Conc 34.3 g/dL (30-55); Mean Corpuscular Hemoglobin 30.6 pg (27-33); Mean Corpuscular Volume 89.3 fl (85-98); Mean Platelet Volume 9.3 fL (7.4-10.4); Monocytes # 0.8 10^3/uL (0.2-0.9); Monocytes % 10.9 %; Neutrophils # 4.28 10^3/uL (1.8-7.7); Neutrophils % 60.6 %; Nucleated Red Blood Cells % 0 %; Platelet Count 339 10^3/cmm (157-399); Red Blood Count 4.48 10^6/uL (3.85-5.65); Red Cell Distribution Width 13.2 % (12.1-15.1); White Blood Count 7.07 10^3/uL (3.29-11.43)
[2023-06-24 07:46] LABS: Alanine Aminotransferase 12 U/L (0-33); Albumin Level 4.6 g/dL (3.5-5.2); Alkaline Phosphatase 86 U/L (35-105); Anion Gap 19.1 (5-19); Aspartate Amino Transferase 22 U/L (0-32); Blood Urea Nitrogen 8 mg/dL (8-23); Calcium 10.2 mg/dL (8.5-10.5); Carbon Dioxide 24 mmol/L (22-29); Chloride 97 mmol/L (98-107); Globulin 2.5 g/dL (1.3-4.6); Glucose 133 mg/dL (65-115); Osmolality Calculated 282 mOsm/kg (285-295); Potassium 4.1 mmol/L (3.5-5.1); Sodium 136 mmol/L (136-145); Total Bilirubin 0.5 mg/dL (0.15-1.2); Total Protein 7.1 g/dL (6.6-8.7); Troponin(5th) Baseline 10 ng/L (0-10)
[2023-06-24 08:13] LABS: Troponin 5 2HR 13.57 ng/L (0-10); Troponin 5 2HR Delta 3.57 ABS# (0-10)
[2023-06-24 08:14] VITALS: BP 171/75; PULSE 76; RESP 15; O2SAT 97
[2023-06-24 08:52] LABS: Add Urine Culture? No; Add Urine Microscopic? YES; Bacteria Urine Y /hpf; Bilirubin Urine Neg (Negative); Blood Urine Neg (Negative); Glucose Urine UA Norm (Normal); Ketones Urine 1+ (Negative); Leukocyte Esterase Urine 2+ (Negative); Nitrate Urine Negative (Negative); Protein Urine Trace (Negative); RBC Urine 0-4 /hpf (0-2); Specific Gravity, Urine 1.015 (1.005-1.030); Squamous Epithelial Cell Urine 0-4 /hpf (0-5); Sulfosalicylic Acid Urine Negative (Negative); Urine Appearance Cloudy (CLEAR); Urine Color Yellow (Yellow); Urobilinogen Urine Norm (Negative); WBC Urine 0-4 /hpf (0-5); pH Urine 9 (5-7)
--- NOTE | 2023-06-24 09:22 | ECG_ITS ---
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 Measurements Intervals [place] Rate: 68 P: 53 [place]: 185 QRS: 21 QRSD: 78 T: 56 QT: 373 QTc: 397 Interpretive Statements SINUS RHYTHM SEPTAL MYOCARDIAL INFARCTION , OF INDETERMINATE AGE [40+ ms Q WAVE IN V1/V2] Compared to ECG 06/24/2023 07:27:21 No significant changes Electronically Signed On 06-24-2023 16:45:51 BOW MAKING MACHINE OPERATOR by Jaime Thompson M.D. [id number]
[2023-06-24 09:30] VITALS: BP 153/82; PULSE 72; RESP 18; O2SAT 97
[2023-06-24 11:00] VITALS: BP 161/91; PULSE 75; RESP 22; O2SAT 99
--- NOTE | 2023-06-28 08:36 | DCPLANNER ---
Message sent to cardiology for a 48 hr holter monitor referral
== END 2023-06-24 12:05 | disposition home or self-care (01) ==
PROVIDERS: Emergency Provider Family Medicine; PCP Nurse Practitioner Family
DX: R00.2 Palpitations (principal); Z79.02 Long term (current) use of antithrombotics/antiplatelets; E78.2 Mixed hyperlipidemia; I10 Essential (primary) hypertension; Z87.891 Personal history of nicotine dependence
CPT/HCPCS: 36415; 71045; 80053; 81001; 84484; 85025; 93005; 99285

== ENCOUNTER → 2023-08-15 11:17 | Outpatient (BNVA) | payer MEDICARE, SELFPAY | PROVIDERS: PCP Nurse Practitioner Family; Visit Provider Surgery | DX: K80.12 Calculus of gallbladder with acute and chronic cholecystitis without obstruction (principal); K59.09 Other constipation; Z79.899 Other long term (current) drug therapy | CPT/HCPCS: 99204 ==

== ENCOUNTER → 2024-04-13 09:15 | Outpatient (BNVA) | payer MEDICARE, MEDICAID, SELFPAY | PROVIDERS: PCP Nurse Practitioner Family; Visit Provider Specialist | DX: G30.9 Alzheimer's disease, unspecified (principal); F02.80 Dementia in other diseases classified elsewhere, unspecified severity, without behavioral disturbance, psychotic disturbance, mood disturbance, and anxiety; R29.90 Unspecified symptoms and signs involving the nervous system; J30.9 Allergic rhinitis, unspecified; B02.23 Postherpetic polyneuropathy | CPT/HCPCS: 99214 ==

== ENCOUNTER → 2024-09-28 10:01 | Outpatient (BNVA) | payer MEDICAID, SELFPAY | PROVIDERS: PCP Nurse Practitioner Family; Visit Provider Student in an Organized Health Care Education/Training Program | DX: C18.9 Malignant neoplasm of colon, unspecified (principal) | CPT/HCPCS: 99204; 99214 ==

== ENCOUNTER 2024-10-23 06:33 | Day surgery (SDC) | payer MEDICARE, MEDICAID, SELFPAY ==
[2024-10-23 06:57] VITALS: BP 172/95; PULSE 61; RESP 18; TEMP 36.6; O2SAT 99; BMI 23.0
--- NOTE | 2024-10-23 07:04 | ANES.PREANE2 ---
Pre-Anesthetic Assessment Height/Weight: Height 1.52 m Preop Diagnosis: Possible colon mass Operation Date: 10/23/24 07:30 Proposed Procedures p Colonoscopy 68699, G0105, C18.9(Not Applicable) - Dennys Coto MD Familial anesthetic complications: none Was Beta Jeimy taken within 24 hours: N/A Was Clonidine taken within 24 hours: N/A Social No alcohol and No tobacco Exam alert, oriented x 3, clear to auscultation bilaterally and regular rate & rhythm Airway Submandibular: within normal limits Cervical ROM: within normal limits Mallampati: Class II Dentition: false History/ROS No significant history except as noted and No significant complaints Pulmonary Asthma, Chronic Obstructive Pulmonary Disease and Shortness of Breath CV/HEM Hypertension None reported Hepatic None reported GI None reported Metabolic None reported Musc/skel None reported Neuropsych Anxiety and Dementia Anesthetic Plan ASA status: 3 Anesthesia: MAC Risk of > 500 ml blood loss (7ml/kg in children): No Medications/Allergies Home Medications ?Medication ?Instructions ?Recorded ?Confirmed ?Last Taken ?Type yflkgttc-yixolstn-tfzy 45 mg-folic 1 cap PO DAILY 09/02/19 10/18/24 10/22/24 History acid 800 mcg-vit K 120 mcg capsule (Bariatric Multivitamins) oxygen #1 ea 05/23/23 09/28/24 Unknown Rx loratadine 10 mg tablet (Claritin) 10 mg PO DAILY #30 tabs 09/19/23 10/18/24 10/22/24 Rx memantine 10 mg tablet 10 mg PO BID 90 days #180 tabs 04/13/24 10/18/24 10/22/24 Rx Lactobacillus acidophilus 1 tab PO QAM 09/28/24 10/18/24 10/22/24 History acetaminophen 325 mg capsule 650 mg PO Q6H PRN Pain 09/28/24 10/18/24 Unknown History brexpiprazole 0.5 mg tablet 0.5 mg PO DAILY 09/28/24 10/18/24 10/22/24 History (Rexulti) magnesium hydroxide 2,400 mg/10 mL 30 ml PO DAILY PRN Constipation 09/28/24 10/18/24 Unknown History oral suspension (Milk Of Magnesia Concentrated) melatonin 10 mg capsule 10 mg PO BEDTIME 09/28/24 10/18/24 10/22/24 History naloxone 2 mg/2 mL syringe kit 2 mg IM Q2M PRN overdose 09/28/24 10/18/24 Unknown History ([facility] Naloxone) polyethylene glycol 3350 17 gram 17 g PO DAILY PRN Constipation 09/28/24 10/18/24 Unknown History oral powder packet (Miralax) sennosides 8.6 mg tablet (senna) 8.6 mg PO BID 09/28/24 10/18/24 10/22/24 History aluminum-mag hydroxide-simethicone 30 ml PO Q6H PRN Indigestion 10/18/24 10/18/24 Unknown History 200 mg-200 mg-20 mg/5 mL oral susp (Clarisa-Lanta) calcium 500 mg (as 1 tab PO DAILY 10/18/24 10/18/24 10/22/24 History carbonate)-vitamin D3 5 mcg (200 unit) tablet (Calcium 500 + D) citalopram 30 mg capsule 30 mg PO DAILY 10/18/24 10/18/24 10/22/24 History clopidogrel 75 mg tablet 75 mg PO DAILY 10/18/24 10/18/24 10/18/24 History gabapentin 100 mg capsule 100 mg PO BEDTIME 10/18/24 10/18/24 10/22/24 History gabapentin 100 mg capsule 200 mg PO DAILY 10/18/24 10/18/24 10/22/24 History galantamine 8 mg tablet 8 mg PO BID 10/18/24 10/18/24 10/22/24 History lisinopril 30 mg tablet 30 mg PO DAILY 10/18/24 10/18/24 10/22/24 History propranolol 10 mg tablet 10 mg PO BEDTIME 10/18/24 10/18/24 10/22/24 History Allergies Allergy/AdvReac Type Severity Reaction Status Date / Time ciprofloxacin (From Cipro) Allergy Mild rash Verified 10/18/24 10:55 dicyclomine (From Bentyl) Allergy Mild rash Verified 10/18/24 10:55 erythromycin base Allergy Mild sick Verified 10/18/24 10:55 lincomycin Allergy Mild sick Verified 10/18/24 10:55 Penicillins Allergy Mild sick Verified 10/18/24 10:55 Sulfa (Sulfonamide Allergy Mild sick Verified 10/18/24 10:55 Antibiotics) tolterodine (From Detrol) Allergy Mild sick Verified 10/18/24 10:55 [facility] Anesthesia Medical History Cholelithiases Bradycardia Normal esophagogastroduodenoscopy (EGD) Mitral valve prolapse Mixed hyperlipidemia Anxiety Essential hypertension Surgical History H/O colonoscopy S/P bladder repair S/P gastric surgery Family History Mother Stroke Hypertension Denies family history of Diabetes Hyperlipidemia Lung disease Cancer Social History Smoking and tobacco/nicotine status: never used tobacco/nicotine Quit status (tobacco/nicotine): has quit using Year quit tobacco: 2007 Former quit date comment: 0.5 ppd X 40 Second hand smoke exposure: No Alcohol intake: never Substance/Drug Use: never Adopted: No Lives independently: Yes Housing: House Do you think of yourself as: Straight/Heterosexual Current gender identity: Female Shirlene/Congregational: [employer] Data Anesthesia Cardiac Studies: Echocardiogram 06/21/23
--- NOTE | 2024-10-23 07:26 | W.PM.OPSUD ---
Surgery/Procedure H&P Update DATE OF PROCEDURE: October 23, 2024 DATE H&P PERFORMED: 09/28/24 H&P UPDATE INFORMATION: I have reviewed H&P completed within last 30 days, I have examined patient prior to procedure and No changes to prior documentation PREOP DIAGNOSIS: Possible colon mass PLANNED PROCEDURE: Operation Date: 10/23/24 07:30 Proposed Procedures p Colonoscopy 71736, G0105, C18.9(Not Applicable) - Dennys Coto MD
[2024-10-23 07:54] VITALS: BP 162/74; PULSE 59; RESP 18; TEMP 36.4; O2SAT 99
[2024-10-23] MEDS: sodium chloride 0.9% 1,000 ML 15 ML IV (08:00)
[2024-10-23 08:06] VITALS: BP 159/70; PULSE 69; RESP 18; O2SAT 98
--- NOTE | 2024-10-23 08:30 | ANE.PACU2 ---
Inpatient post-anesthesia follow up: Airway intact: Yes Vital signs: Temperature 97.5 F Pulse Rate 69 Respiratory Rate 18 Blood Pressure 159/70 Pulse Oximetry 98 Oxygen Delivery Me thod Room Air Oxygen Flow Rate Fraction of Inspir ed Oxygen Hydration adequate: Yes Nausea and vomiting: No Pain level: 1 Mental status: Baseline
== END 2024-10-23 08:30 | disposition home or self-care (01) ==
PROVIDERS: PCP Internal Medicine; Visit Provider Student in an Organized Health Care Education/Training Program
PROC: 0DJD8ZZ Inspection of Lower Intestinal Tract, Via Natural or Artificial Opening Endoscopic (ICD-10-PCS; CPT 45378; principal; 2024-10-23 07:30)
DX: Z12.11 Encounter for screening for malignant neoplasm of colon (principal); K57.92 Diverticulitis of intestine, part unspecified, without perforation or abscess without bleeding; K63.89 Other specified diseases of intestine; I10 Essential (primary) hypertension; J44.9 Chronic obstructive pulmonary disease, unspecified; E78.2 Mixed hyperlipidemia; Z79.899 Other long term (current) drug therapy; Z79.02 Long term (current) use of antithrombotics/antiplatelets; Z88.0 Allergy status to penicillin; Z88.8 Allergy status to other drugs, medicaments and biological substances; Z88.2 Allergy status to sulfonamides; Z88.1 Allergy status to other antibiotic agents; Z87.891 Personal history of nicotine dependence
CPT/HCPCS: 45380; 88305; J2704; J3490; J7030; J9999

== ENCOUNTER → 2024-11-06 13:05 | Outpatient (BNVA) | payer MEDICARE, MEDICAID, SELFPAY | PROVIDERS: PCP Internal Medicine; Visit Provider Orthopaedic Surgery | DX: M25.531 Pain in right wrist (principal) | CPT/HCPCS: 73110; 99203 ==

== ENCOUNTER 2024-11-06 14:50 | Outpatient (CLI) | payer MEDICARE, MEDICAID, SELFPAY | END 2024-11-06 14:51 | disposition home or self-care (01) | LOC: SPT 14:50 | PROVIDERS: PCP Internal Medicine; Visit Provider Orthopaedic Surgery | DX: Z46.89 Encounter for fitting and adjustment of other specified devices (principal); S52.591D Other fractures of lower end of right radius, subsequent encounter for closed fracture with routine healing; X58.XXXD Exposure to other specified factors, subsequent encounter | CPT/HCPCS: 97760; L3982 ==

== ENCOUNTER → 2024-11-09 08:03 | Outpatient (BNVA) | payer MEDICARE, MEDICAID, SELFPAY | PROVIDERS: PCP Internal Medicine; Visit Provider Student in an Organized Health Care Education/Training Program | DX: Z09 Encounter for follow-up examination after completed treatment for conditions other than malignant neoplasm (principal) | CPT/HCPCS: 99213 ==

== ENCOUNTER → 2024-11-22 08:09 | Outpatient (BNVA) | payer MEDICARE, MEDICAID, SELFPAY | PROVIDERS: PCP Internal Medicine; Visit Provider Orthopaedic Surgery | DX: M25.531 Pain in right wrist (principal) | CPT/HCPCS: 73110; 99213 ==

== ENCOUNTER → 2024-12-13 12:51 | Outpatient (BNVA) | payer MEDICARE, MEDICAID, SELFPAY | PROVIDERS: PCP Internal Medicine; Visit Provider Orthopaedic Surgery | DX: S52.531D Colles' fracture of right radius, subsequent encounter for closed fracture with routine healing (principal); X58.XXXD Exposure to other specified factors, subsequent encounter | CPT/HCPCS: 73110; 99213 ==

== ENCOUNTER → 2025-01-22 13:15 | Outpatient (BNVA) | payer MEDICARE, MEDICAID, SELFPAY | PROVIDERS: PCP Internal Medicine; Visit Provider Orthopaedic Surgery | DX: S52.531D Colles' fracture of right radius, subsequent encounter for closed fracture with routine healing (principal); X58.XXXD Exposure to other specified factors, subsequent encounter | CPT/HCPCS: 73110; 99213 ==

== ENCOUNTER 2025-03-05 13:28 | Emergency (ER) | payer MEDICARE, MEDICAID, SELFPAY ==
[2025-03-05] VITALS (8 sets, daily range): BP systolic 143–198; BP diastolic 90–103; PULSE 69–73; RESP 16–20; TEMP 36.8; O2SAT 97–99
[2025-03-05 14:01] LABS: Hematocrit 37.9 % (36-47); Hemoglobin 12.30 g/dL (11.27-16.99); Mean Corpuscular HGB Conc 32.5 g/dL (30-55); Mean Corpuscular Hemoglobin 29.4 pg (27-33); Mean Corpuscular Volume 90.7 fl (85-98); Nucleated Red Blood Cells % 0 %; Platelet Count 253 10^3/cmm (157-399); Red Blood Count 4.18 10^6/uL (3.85-5.65); White Blood Count 9.64 10^3/uL (3.29-11.43)
[2025-03-05 14:06] LABS: Add Urine Microscopic? YES; UA Manual Slide Review YES; UA Slide Review UA Slide Review Perf
--- OUTSIDE RECORDS SUMMARY | 2025-03-05 14:07 | XMS_ITS | Clinical Summary ---
Author Organization [facility] Address [address] Anthony: Epic Prelude ADT [place] [address] Care Team Providers Care Wincher Name Role Phone Non-Staff, Physician Primary Care Provider Unava ilable Allergies Active Allergy Reactions Criticality Noted Date Comments Ciprofloxacin Unknown 08/24/2024 Dicyclomine Unknown 08/24/2024 Erythromycin Swelling Low 11/07/2008 Estradiol Other (See Comments) 11/07/2008 Caused menstrual bleeding Levofloxacin Other (See Comments) 06/22/2010 Numbness around mouth and palpations. Lincomycin Other (See Comments) 04/08/2015 Urinated blood Sulfa (Sulfonamide Antibiotics) Hives High 11/07/2008 Tolterodine Unknown 08/24/2024 Unclassified Drug Swelling Low 11/07/2008 Medications iron/vitamin B complex/min (GERIATRIC VITAMIN ORAL) Take 1 Tablet by mouth daily. 9 Active montelukast (SINGULAIR) 10 mg tablet Take 1 Tablet (10 mg) by mouth daily at bedtime For allergies. 30 Tablet 3 8 Active propranoloL (INDERAL) 40 mg tablet Take 40 mg by mouth 2 times daily. Active docusate sodium (COLACE) 100 mg capsule Take 100 mg by mouth 2 times daily. Active butalbital-aceta minophen-caffein e (FIORICET) 50-325-40 mg tabletIndication s:Chronic tension-type headache, intractable Take 1 Tablet by mouth every 6 hours as needed for Migraine. 15 Tablet 2 Active lisinopriL (PRINIVIL) 30 mg tablet Take 30 mg by mouth daily. Active memantine HCl (MEMANTINE ORAL) Take 10 mg by mouth 2 times daily. Active galantamine (RAZADYNE) 4 mg tablet Take 4 mg by mouth 2 times daily. Active Melatonin 300 mcg Tablet Take by mouth. Acti ve CALCIUM CITRATE-VITAMIN D3 ORAL Take by mouth. Activ e albuterol sulfate HFA 90 mcg/actuation aerosol inhaler Take 2 Puffs by inhalation every 6 hours as needed for Shortness of Breath. Active nitroglycerin (Nitrostat) 0.4 mg Tablet, Sublingual Place 1 Tablet (0.4 mg) under tongue every 5 minutes as needed for Chest Pain. 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, psychotic disturbance, mood disturbance, or anxiety 08/24/2024 HTN (hypertension), benign 08/24/2024 Chronic idiopathic constipation 08/24/2024 Head injury without concussion or intracranial h emorrhage 04/30/2024 Accident due to mechanical fall without injury 1 06/30/2023 Angina pectoris without myocardial infarction Intractable headache 02/28/2022 Hyponatremia 02/28/2022 Acute pyloric channel ulcer 03/06/2013 Personal history of colonic polyps 03/06/2013 Dyspepsia and other specifie d disorders of function of stomach 02/22/2013 Change in bowel habits 02/22/2013 History of reactive hypoglycemia 02/22/2013 Malar and maxillary bones, closed fracture 04/01 Orbital fracture 04/01/2011 Fracture, zygoma closed 04/01/2011 Generalized anxiety disorder 11/07/2008 Irritable colon syndrome 11/07/2008 Mitral valve prolapse 11/07/2008 Encounters Date Type Department Care Team Description 02/05/2025 External Device Data ST[facility] ABSTRACTION Provider, Abstract 02/05/2025 External Device Data ST[facility] ABSTRACTION Provider, Abstract 12/05/2024 External Device Data [facility] ABSTRACTION Provider, Abstract from Last 3 Months Immunizations Immunization Administration Dates Next Due (ADACEL/BOOSTRIX)(10 YR UP) TDAP VACCINE, 0.5ML, IM 03/18/2016 Influenza Seasonal Unspecified Formulation IM ,03/20/2012 Family History Medical History Relation Name Comments Healthy Brother 1 Other Brother 2 Cancer Father Hypertension Mother Stroke Mother Relation Name Status Comments Brother 1 Alive Brother 2 Brother 3 Alive Father Mother Social History Tobacco Use Types Packs/Day Years Used Date Smoking Tobacco: Former Cigarettes Q uit: 04/04/2011 Smokeless Tobacco: Never Tobacco Cessation:Counseling Given: Not Answered Alcohol Use Standard Drinks/Week Comments Not Currently 0 (1 standard drink = 0.6 oz pur e alcohol) Feeling Safe Answer Date Recorded Are you in a relationship wi th someone who hurts you emotionally and/or physically? No 08/24/2024 Food Insecurity Answer Date Recorded Patient needs follow up regardin 10/10/2024 Transportation Needs Answer Date Record ed Patient needs follow up regardin 10/10/2024 Housing Stability Answer Date Recorded Social/Environmental Concerns No concerns Utility Needs Answer Date Recorded Patient needs follow up regardin 10/10/2024 Comments No Sex and Gender Information Value Date Recorded Sex Assigned at Not on file Legal Sex Female 4:10 PM REGISTERED CLINICAL DIETITIAN Gender Identity Not on file Sexual Orientation Not on file Last Filed Vital Signs Vital Sign Reading Time Taken Comments Blood Pressure 156/75 08/25/2024 10:00 AM REGISTERED CLINICAL DIETITIAN Pulse 56 08/25/2024 10:00 AM REGISTERED CLINICAL DIETITIAN Temperature 36.8 C (98.2 F) 08/25/2024 7:23 AM REGISTERED CLINICAL DIETITIAN Respiratory Rate 17 08/25/2024 10:00 AM REGISTERED CLINICAL DIETITIAN Oxygen Saturation 92% 08/25/2024 10:00 AM REGISTERED CLINICAL DIETITIAN Inhaled Oxygen Concentration - - Weight 55.1 kg (121 lb 6.4 oz) 08/24/2024 7:46 P M REGISTERED CLINICAL DIETITIAN Height 154.9 cm (5' 1 ) 08/24/2024 7:46 PM REGISTERED CLINICAL DIETITIAN Body Mass Index 22.94 08/24/2024 7:46 PM REGISTERED CLINICAL DIETITIAN Plan of Treatment Upcoming Encounters Date Type Department Care Team (Late st Contact Info) Description 04/04/2025 8:40 AM CDT [facility] [address] [place] [address] Jude Cruz MD [address] [facility] [address] [place] [id number] Health Maintenance Due Date Last Done Comments PNEUMOCOCCAL VACCINE 50+ YEA RS (1 of 1 - PCV) 1991 ZOSTER VACCINE (1 of 2) 1991 RSV VACCINE (60+ or ) (1 - 1-dose 75+ series) 2016 COLORECTAL SCREENING 02/27/2018 02/27/2013 OSTEOPOROSIS SCREENING 07/19/2021 07/19/2016, 2016 INFLUENZA VACCINE (#1) 2025 , 04/09/2022, 04/29/2015, Additional history exists COVID-19 Vaccine ( - 2023-2 5 season) 2025 04/04/2024, 05/20/2021, 10/11/2020, Additional history exists DTAP/TDAP/TD VACCINES (2 - T d or Tdap) 03/18/2026 03/18/2016 Medical Devices Implanted Type Area [facility] Cutter Device Identifier Shelf Expiration Date Model / Serial / Lot Log [id number] - Synthes Ttnm Matrixmidface - 1 - Plate Orb Rim Matrixmidface Implanted:Qty: 1 on 04/13/2011 Plate Right: Zygoma [employer]ES-STRATEC - MAXIFACIAL [id number] / / LOAD # [id number] Log [id number] - Synthes Ttnm Matrixmidface - 1 - Plate-L Oblique Matrixmidface .395 Implanted:Qty: 1 on 04/13/2011 Plate Right: Zygoma [employer]AT[employer] - MAXIFACIAL .503.395 / / LOAD # [id number] Log [id number] - Synthes Ttnm Matrixmidface - 1 - Screw Matrixmidface Emrgncy 4mm Implanted:Qty: 1 on 04/13/2011 Screw Right: Zygoma SYN[employer]ES-STRATEC - MAXIFACIAL .503.234. 01 / / LOAD # [id number] Log [id number] - Synthes Ttnm Matrixmidface - 1 - Screw Matrixmidface Sd 4mm Implanted:Qty: 6 on 04/13/2011 Screw Right: Zygoma [employer]STRAT[employer] - MAXIFACIAL 04..224. 01 / / LOAD # [id number] Log [id number] - Synthes Ttnm Matrixmidface - 1 - Screw Matrixmidface Sd 5mm 225 Implanted:Qty: 2 on 04/13/2011 Screw Right: Zygoma SYNTHES-STRATEC - MAXIFACIAL .225. 01 / / LOAD # [id number] Log [id number] - Synthes Ttnm Matrixmidface - 1 - Screw Matrixmidface Sd 6mm .226 Implanted:Qty: 4 on 04/13/2011 Screw Right: Zygoma SYN[employer]ES-STRATEC - MAXIFACIAL .226. 01 / / LOAD # [id number] Procedures Procedure Name Priority Date/Time Associated Diagnosis Comments XR DEXA BONE DENSITY AXIAL 1 OR MORE SITES Routine 07/19/2016 1:55 PM REGISTERED CLINICAL DIETITIAN Bariatric surgery status from Last 3 Months or Most Recently Relevant to Health Maintenance Results * XR DEXA BONE DENSITY AXIAL 1 OR MORE SITES (07/19/2016 1:55 PM REGISTERED CLINICAL DIETITIAN) Anatomical Region Laterality Modality Other Impressions 07/19/2016 4:00 PM REGISTERED CLINICAL DIETITIAN Abnormal examination Bone density lies in the osteoporotic range in the lumbar spine and left proximal femur significantly below the average of the patient's age-matched control in the spine consistent with accelerated bone demineralization is the etiology of her osteoporosis. NOF guidelines recommend consideration of FDA-approved medical therapies in patients with T-scores of the spine or hip equal to or less than -2.5 or with FRAX determined 10-year probabilities of hip/major osteoporosis-related fractures equal or greater than 3%/20% respectively. FRAX determined fracture risk will underestimate values as bone density lies greater below the average of her age-matched control in the spine than in the hip. Consider remeasuring no sooner than 2 years only as clinically needed. Narrative 07/19/2016 4:00 PM REGISTERED CLINICAL DIETITIAN DEXA Evaluation of the Lumbar Spine and Left Proximal Femur Reason for Consultation: Ovarian failure. Evaluation of bone mineral density. The following absorptiometry data were obtained. The quality of this examination is acceptable with regards to count density, processed images, data display and lack of important artifacts (including but not limited to motion and attenuation artifacts). Serial examination number 1. L1-L4 BMD (g/cm2): 0.584 Adult T-score: -4.2 Adult Z-score: -1.8 Left Femoral Neck BMD (g/cm2): 0.551 Adult T-score: -2.7 Adult Z-score: -0.6 Left Total Hip BMD (g/cm2): 0.657 Adult T-score: -2.3 Adult Z-score: -0.6 Procedure Note Maxime Hill MD - 08/13/2021 DEXA Evaluation of the Lumbar Spine and Left Proximal Femur Reason for Consultation: Ovarian failure. Evaluation of bone mineral density. The following absorptiometry data were obtained. The quality of this examination is acceptable with regards to count density, processed images, data display and lack of important artifacts (including but not limited to motion and attenuation artifacts). Serial examination number 1. L1-L4 BMD (g/cm2): 0.584 Adult T-score: -4.2 Adult Z-score: -1.8 Left Femoral Neck BMD (g/cm2): 0.551 Adult T-score: -2.7 Adult Z-score: -0.6 Left Total Hip BMD (g/cm2): 0.657 Adult T-score: -2.3 Adult Z-score: -0.6 IMPRESSION Abnormal examination Bone density lies in the osteoporotic range in the lumbar spine and left proximal femur significantly below the average of the patient's age-matched control in the spine consistent with accelerated bone demineralization is the etiology of her osteoporosis. NOF guidelines recommend consideration of FDA-approved medical therapies in patients with T-scores of the spine or hip equal to or less than -2.5 or with FRAX determined 10-year probabilities of hip/major osteoporosis-related fractures equal or greater than 3%/20% respectively. FRAX determined fracture risk will underestimate values as bone density lies greater below the average of her age-matched control in the spine than in the hip. Consider remeasuring no sooner than 2 years only as clinically needed. [facility] ORDERABLES Final Result from Last 3 Months or Most Recently Relevant to Health Maintenance Insurance MEDICARE PART A AND B [place]ICAID [place] Advance Directives For more information, please contact: [phone] * Full Code (Latest Code Status on File) Date Activated Date Inactivated Comments 08/24/2024 7:53 PM 08/25/2024 1:59 PM * Full Code Date Activated Date Inactivated Comments 02/28/2022 2:42 AM 02/28/2022 4:26 PM Care Teams Wincher Relationship Specialty Start Date End Date Non-Staff, Physician NO ADDRESS ON FILE PCP - General 07/13/19
--- OUTSIDE RECORDS SUMMARY | 2025-03-05 14:07 | XMS_ITS | Encounter Summary ---
Author Organization [facility] Address [address] [place] [address] Care Team Providers Care Hansard Reporter Name Role Phone Lizandro Madrid MD Primary Care Provider [phone] Encounter Details Date Type Department Care Team (Late st Contact Info) Description 10/29/2024 Orders Only [facility] - Primary Care [address] [place] [address] Provider, MD Lynne [address] [place], [place] [id number] Social History Tobacco Use Types Packs/Day Years Used Date Smoking Tobacco: Unknown Alcohol Use Standard Drinks/Week Comments Defer 0 (1 standard drink = 0.6 oz pur e alcohol) PHQ-2 Answer Date Recorded PHQ-2 Score 0 07/03/2024 Comments Unknown Sex and Gender Information Value Date Recorded Sex Assigned at Not on file Legal Sex Female 3:23 PM FANCY PACKER Gender Identity Not on file Sexual Orientation Not on file documented as of this encounter Plan of Treatment Not on file documented as of this encounter Procedures Procedure Name Priority Date/Time Associated Diagnosis Comments HM COLONOSCOPY Routine 10/23/2024 3:58 PM CDT documented in this encounter Results * HM COLONOSCOPY (10/23/2024 3:58 PM CDT) Historical Provider HEALTH MAINTENANCE Final Result documented in this encounter Visit Diagnoses Not on filedocumented in this encounter Additional Health Concerns Assessment Noted Time PHQ-9 Depression Total Score: 0 07/03/19 25 11:54 AM FANCY PACKER A fall risk assessment has been complete d for the patient 09/25/2024 7:53 AM CDT documented as of this encounter Care Teams Hansard Reporter Relationship Specialty Start Date End Date Lizandro Madrid MD [address] [address] PCP - General Internal Medicine 05/24/24 documented as of this encounter
--- OUTSIDE RECORDS SUMMARY | 2025-03-05 14:07 | XMS_ITS | Encounter Summary ---
Author Organization [facility] Address [address] [place] [address] Care Team Providers Care Feather Sawyer Name Role Phone Non-Staff, Physician Primary Care Provider Unava ilable Encounter Details Date Type Department Care Team (Latest Contact Info) Description 03/10/2006 Outpatient Historical [facility] Family Medicine [place] 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
--- OUTSIDE RECORDS SUMMARY | 2025-03-05 14:07 | XMS_ITS | Patient Health Record ---
Author Organization [facility] Address [address] [place] [address] Care Team Providers Care Static Balancer Name Role Phone Girma MONTAÑO, Nghia Unavailable Unavailabl e Reason For Referral No Information Medications Medication SIG (Take, Route, Frequency, Duration) Notes Start Date End Date Status Inderal LA 80 MG 40mg Oral two times daily Not-Taking Prevacid 15 MG Oral daily Not- Taking Fish Oil 1000 MG Oral daily No t-Taking Garlic Oil 1000 MG Oral daily Not-Taking Probiotic Complex Acidophilus - Oral daily Not-Taking Problems Problem Type SNOMED Code ICD Code Onset Dates Problem Status W/U Status Risk Notes Problem Dyspnea (290322487) SOB (SHORTNESS OF BREATH) ON EXERTION (R06.02) Inactive confirmed Problem Constipation (81462570) CONSTIPATION, UNSPECIFIED CONSTIPATION TYPE (K59.00) Inactive confirmed Problem OTHER MECHANICAL COMPLICATION OF GRAFT OF URINARY ORGAN (T83.29XA) Inactive confirmed Comment:discu ssed with pt that exposed mesh could not be seen on exam today; but with palpation, mesh feels very superficial and may be exposed. Discussed possible treatment with vaginal estrogen vs referral to UroGyn. Pt agrees with referral. Time spent with pt 30 minutes, >50% counseling, Problem Lower abdominal pain (96730495) LOWER ABDOMINAL PAIN (R10.30) Inactive confirmed Plan Of Treatment No Information Insurance Providers Payer Name Payer Address Payer Phone Subscriber Number Group Number Insured Name Patient Relationship to Insured Coverage Start Date Coverage End Date [facility] MEDICARE PFFS [address] [address] [place] [address] [phone] [id number] BERNY BLUNT Self - patient is the insured Medical (General) History Surgical History Surgery Date(Month/Year) Facial Fracture Repair, ProblemStatus: A ctive, Bladder Repair, ProblemStatus: Active,
--- OUTSIDE RECORDS SUMMARY | 2025-03-05 14:07 | XMS_ITS | Clinical Summary ---
Author Organization [facility] Address [address] [place] [address] [place] [address] Care Team Providers Care Manager Metal Name Role Phone Lizandro Madrid MD Primary Care Provider [phone] Allergies Active Allergy Reactions Criticality Noted Date Comments Ciprofloxacin Unknown 05/24/2024 Dicyclomine Unknown 05/24/2024 Erythromycin Unknown 05/24/2024 Lincomycin Unknown 05/24/2024 Penicillins Unknown 05/24/2024 Sulfa (Sulfonamide Antibiotics) Unknown 10/2023 Tolterodine Unknown 05/24/2024 Medications No known medications Active Problems Problem Noted Date Diagnosed Date Fracture, Colles, right, closed 02/27/2025 Moderate late onset Alzheime r's dementia with mood disturbance 06/01/2024 Essential hypertension 06/01/2024 Asthma-COPD overlap syndrome 06/01/2024 Chronic allergic rhinitis 06/01/2024 Mitral valve prolapse 06/01/2024 Slow transit constipation 06/01/2024 Chronic insomnia 06/01/2024 Chronic back pain greater than 3 months duration 06/01/2024 History of bariatric surgery 06/01/2024 History of cholecystectomy 06/01/2024 Hyponatremia 02/28/2022 Resolved Problems Problem Noted Date Diagnosed Date Resolved Date Colon cancer 12/28/2024 12/28/2024 Benign paroxysmal positional vertigo 11/30/2024 11/30/2024 Mixed hyperlipidemia 11/30/2024 025 Vitamin D deficiency 11/30/2024 025 Lipoma of colon 08/24/2024 12/28/2024 Angina pectoris without myocardial infarction 05/18/20 23 12/28/2024 Acute pyloric channel ulcer 03/06/2013 12/28/2024 History of colonic polyps 03/06/2013 Orbital fracture 04/01/2011 12/28/2024 Social History Tobacco Use Types Packs/Day Years Used Date Smoking Tobacco: Unknown Tobacco Cessation:Counseling Given: Not Answered Alcohol Use Standard Drinks/Week Comments Defer 0 (1 standard drink = 0.6 oz pur e alcohol) PHQ-2 Answer Date Recorded PHQ-2 Score 0 07/03/2024 Comments Unknown Sex and Gender Information Value Date Recorded Sex Assigned at Not on file Legal Sex Female 3:23 PM INVENTORY TAKER Gender Identity Not on file Sexual Orientation Not on file Last Filed Vital Signs Vital Sign Reading Time Taken Comments Blood Pressure 136/80 02/26/2025 7:35 AM CDT Pulse 62 02/26/2025 7:35 AM CDT Temperature 36.1 C (97 F) 02/26/2025 7:35 AM CDT Respiratory Rate 16 02/26/2025 7:35 AM CDT Oxygen Saturation 95% 02/26/2025 7:35 AM CDT Inhaled Oxygen Concentration - - Weight 53.5 kg (118 lb) 02/26/2025 7:35 AM CDT Height 152.4 cm (5') 02/26/2025 7:35 AM CDT Body Mass Index 23.05 02/26/2025 7:35 AM CDT Plan of Treatment Health Maintenance Due Date Last Done Comments Medicare Annual Wellness 1940 Pneumococcal Vaccine: 50+ Ye ars (1 of 2 - PCV) 1960 Td, Tdap Vaccines Adult 1960 Mammogram 1981 Shingrix (ZOSTER RECOMBINANT ) (1 of 2) 1991 RSV 60+ (1 - 1-dose 75+ series) 2016 Bone Density Scan (DXA Scan) 07/19/2019 07/19/2016 Influenza Vaccination (#1) 2025 Colonoscopy 10/23/2034 10/23/2024 HIB Vaccines Aged Out No longer eligi ble based on patient's age to complete this topic HPV Vaccines Aged Out No longer eligi ble based on patient's age to complete this topic Hepatitis A Vaccines Aged Out No long er eligible based on patient's age to complete this topic Hepatitis B Vaccines Aged Out No long er eligible based on patient's age to complete this topic IPV Vaccines Aged Out No longer eligi ble based on patient's age to complete this topic Meningococcal Vaccines Aged Out No lo nger eligible based on patient's age to complete this topic RSV Mab Nirsevimab (Beyfortu s) <20 months Aged Out No longer eligible b ased on patient's age to complete this topic Rotavirus Vaccines Aged Out No longer eligible based on patient's age to complete this topic Procedures Procedure Name Priority Date/Time Associated Diagnosis Comments COLONOSCOPY Routine 10/23/2024 3:58 PM CDT from Last 3 Months or Most Recently Relevant to Health Maintenance Results * HM COLONOSCOPY (10/23/2024 3:58 PM CDT) Historical Provider HEALTH MAINTENANCE Final Result from Last 3 Months or Most Recently Relevant to Health Maintenance Insurance ID [id number] Care Teams Manager Metal Relationship Specialty Start Date End Date Lizandro Madrid MD [address] [place] [address] PCP - General Internal Medicine 05/24/24
--- OUTSIDE RECORDS SUMMARY | 2025-03-05 14:07 | XMS_ITS | Encounter Summary ---
Author Organization [facility] Address [address] [place] [address] Care Team Providers Care Licensed Massage Therapist Name Role Phone Non-Staff, Physician Primary Care Provider Unava ilable Encounter Details Date Type Department Care Team (Latest Contact Info) Description 03/09/2007 Outpatient Historical [facility] Family Medicine [place] [address] [place] [address] Kiara Alonoz MD NO ADDRESS ON FILE Mitral Valve Disorder (Primary Dx) Social History Tobacco Use Types Packs/Day Years Used Date Smoking Tobacco: Never Assessed Comments Unknown Sex and Gender Information Value Date Recorded Sex Assigned at Not on file Legal Sex Female 3:23 AM 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
--- OUTSIDE RECORDS SUMMARY | 2025-03-05 14:07 | XMS_ITS | Encounter Summary ---
Author Organization [facility] Address [address] [place] [address] Care Team Providers Care Robotics Technician Name Role Phone Non-Staff, Physician Primary Care Provider Unava ilable Encounter Details Date Type Department Care Team (Latest Contact Info) Description 07/06/2006 Outpatient Historical [facility] Family Medicine- [place] [address] [place] [address] Tommy Maldonado NP NO ADDRESS ON FILE Unspecified Symptom Associated with Female Genital Organs (Primary Dx); Dysuria Social History Tobacco Use Types Packs/Day Years Used Date Smoking Tobacco: Never Assessed Comments Unknown Sex and Gender Information Value Date Recorded Sex Assigned at Not on file Legal Sex Female 3:23 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
--- OUTSIDE RECORDS SUMMARY | 2025-03-05 14:07 | XMS_ITS | Encounter Summary ---
Author Organization [facility] Address [address] 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 Gender Identity Not on file Sexual Orientation Not on file documented as of this encounter Plan of Treatment Not on file documented as of this encounter Procedures Procedure Name Priority Date/Time Associated Diagnosis Comments C-REACTIVE PROTEIN Routine 01/31/2007 12 :32 PM CDT documented in this encounter Results * C-REACTIVE PROTEIN (01/31/2007 12:32 PM CDT) CRP <0.01 0.00 - 1.00 mg/dL INTERFACE SYSTEM 01/31/2007 12:3 2 PM CDT us Physician Non-Staff CHEMISTRY ORDERABLES Edited INTERFACE SYSTEM Refer to clinic/hospital department documented in this encounter Visit Diagnoses Not on filedocumented in this encounter Care Teams Wood Fuel Pelletizer Relationship Specialty Start Date End Date Non-Staff, Physician NO ADDRESS ON FILE PCP - General 07/13/19 documented as of this encounter
--- OUTSIDE RECORDS SUMMARY | 2025-03-05 14:07 | XMS_ITS | Encounter Summary ---
Author Organization [facility] Address 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 Gender Identity Not on file Sexual Orientation Not on file documented as of this encounter Plan of Treatment Upcoming Encounters Date Type Department Care Team (Late Contact Info) Description 04/04/2025 8:40 AM CDT Office Visit [facility] Gastroenterology- [place] [id number] [facility] [address] [place] [address] Jude Cruz MD [address] [facility] [address] [place] [address] documented as of this encounter Procedures Procedure Name Priority Date/Time Associated Diagnosis Comments PATHOLOGY Routine 12/09/2008 4:17 PM CDT C. DIFFICILE DETECTION Routine 9 4:00 PM CDT TRANSGLUTAMINASE IGA ANTIBODY Stat 12/09/2008 3:03 PM CDT C-REACTIVE PROTEIN Stat 12/09/2008 3: 03 PM CDT TSH Stat 12/09/2008 3:03 PM CDT IGA Stat 12/09/2008 3:03 PM CDT FECAL LEUKOCYTES STAIN Routine 9 2:15 PM CDT OVA AND PARASITE SCREEN Routine 12/10/19 09 2:15 PM CDT STOOL CULTURE W/SHIGA TOXIN Routine 12/09/2008 2:15 PM CDT documented in this encounter Results * PATHOLOGY (12/09/2008 4:17 PM CDT) FINAL REPORT [address] [address] Patient: BERNY BLUNT : 1940 Procedure Date: 12/09/2008 Accession Date: 12/09/2008 Case No: [id number] Ordering Dr: KEELY PEÑA Case types AW, BW, FW, NW and SH are performed by [facility], [place], [place] SURGICAL PATHOLOGY & NON-GYNECOLOGIC CYTOPATHOLOGY REPORT DIAGNOSIS LARGE INTESTINE, RANDOM, BIOPSY: - NO PATHOLOGIC DIAGNOSIS. Specimen Description: Random colon biopsy. Operative Procedure: Colonoscopy. Patient Information/Histor y/Diagnosis: Chronic diarrhea. Please look for collagenous colitis, microscopic colitis. Gross: Received in one container labeled Berny Blunt, random colon biopsy are five pieces of rodriguez tissue, ranging from 0.1 cm to 3 cm. All are submitted in block A1. [facility] 12.09.2008 06:03 pm Microscopic: The slides are labeled [id number], Berny Blunt. Sections of the random colon biopsy show multiple strips of colonic mucosa with no active inflammation, no intraepithelial lymphocytosis, and no thickened subepithelial collagen band. Crypt architecture is normal with no chronic architectural changes. The mucosa is essentially normal. /[facility] 12.10.2008 09:28 am Staging Form: No. ELECTRONIC SIGNATURE FOR NAVIN MENDOZA MD- 12/10/08 02:08 pm INTERFACE SYSTEM 12/09/2008 4:17 PM CDT us Keely Peña MD PATHOLOGY/CYTOLOGY ORDERABLES F inal Result Performing Organization Address [facility] Phone Number INTERFACE SYSTEM Refer to clinic/hospital department * CLOSTRIDIUM DIFFICILE TOXIN (12/09/2008 4:00 PM CDT) FINAL REPORT NO Clostridium difficile Toxin A or B detected by EIA. A negative result does not rule out C. difficile associated diarrhea or colitis. [facility] Stool specimen (specimen) 12/09/2008 4:00 PM CDT 12/09/2008 4:33 PM CDT us Keely Peña MD MICROBIOLOGY - GENERAL ORDERABL ES Final Result Performing Organization Address [facility] Phone Number INTERFACE SYSTEM Refer to clinic/hospital department [facility] CLIA# [id number] [address] [place] [address] * C-REACTIVE PROTEIN (12/09/2008 3:03 PM CDT) CRP <0.2 0.0 - 0.8 mg/dL [facility] 12/09/2008 3:03 PM CDT 12/09/2008 3:03 PM CDT us Keely Peña MD CHEMISTRY ORDERABLES Final Resu lt Performing Organization Address [facility] de Phone Number INTERFACE SYSTEM Refer to clinic/hospital department [facility] CLIA# [id number] [address] [place] [address] * TRANSGLUTAMINASE IGA ANTIBODY (12/09/2008 3:03 PM CDT) TRANSGLUTAMINASE IGA AB <3 <5 U/mL [facility] Comment: Reference range: <5 U/mL Negative 5-8 U/mL Equivocal >8 U/mL Positive Lab test performed by: [employer]/[address] [address] VARUN JACKSON MD 12/09/2008 3:03 PM CDT 12/09/2008 3:10 PM CDT us Keely Peña MD CHEMISTRY ORDERABLES Final Resu lt Performing Organization Address City/[facility] de Phone Number INTERFACE SYSTEM Refer to clinic/hospital department [facility] CLIA# [id number] [address] [place] [address] * IGA (12/09/2008 3:03 PM CDT) Pathologist [facility] IGA 143.0 86.0 - 517.0 mg/dL [facility] 12/09/2008 3:03 PM CDT 12/09/2008 3:03 PM CDT us Keely Peña MD CHEMISTRY ORDERABLES Final Resu lt Performing Organization Address City/[facility] de Phone Number INTERFACE SYSTEM Refer to clinic/hospital department [facility] CLIA# [id number] [address] [place] [address] * TSH (12/09/2008 3:03 PM CDT) Pathologist [facility] TSH 0.76 0.27 - 4.20 uU/mL [facility] 12/09/2008 3:03 PM CDT 12/09/2008 3:03 PM CDT us Keely E Elwing MD CHEMISTRY ORDERABLES Final Resu lt Performing Organization Address [facility] Co de Phone Number INTERFACE SYSTEM Refer to clinic/hospital department [facility] CLIA# [id number] [address] [place] [address] * OVA AND PARASITE SCREEN (12/09/2008 2:15 PM CDT) PRELIMINARY REPORT Pending [facility] FINAL REPORT Concentration : No ova or parasites seen. Trichrome: No ova or parasites seen. [facility] Stool specimen (specimen) 12/09/2008 2:15 PM CDT 12/09/2008 4:33 PM CDT Narrative INTERFACE SYSTEM - 12/13/2008 10:09 AM CDT Performed by [id number] [address] [id number] [place] [address] us Keely Peña MD MICROBIOLOGY - GENERAL ORDERABL ES Final Result Performing Organization Address [facility] de Phone Number INTERFACE SYSTEM Refer to clinic/hospital department [facility] CLIA# [id number] [address] [place] [address] * FECAL LEUKOCYTES STAIN (12/09/2008 2:15 PM CDT) FINAL REPORT No WBC's seen. [facility] Stool specimen (specimen) 12/09/2008 2:15 PM CDT 12/09/2008 4:33 PM CDT us Keely Peña MD MICROBIOLOGY - GENERAL ORDERABL ES Final Result Performing Organization Address [facility] de Phone Number INTERFACE SYSTEM Refer to clinic/hospital department [facility] CLIA# [id number] [address] [place] [address] * STOOL CULTURE (12/09/2008 2:15 PM CDT) PRELIMINARY REPORT No Salmonella isolated. No Shigella isolated. No Escherichia coli serogroup O157:H7 isolated. [facility] FINAL REPORT No Salmonella isolated. No Shigella isolated. No Escherichia coli serogroup O157:H7 isolated. No Campylobacter isolated. [facility] Stool specimen (specimen) 12/09/2008 2:15 PM CDT 12/09/2008 4:33 PM CDT us Keely Peña MD MICROBIOLOGY - GENERAL ORDERABL ES Final Result INTERFACE SYSTEM Refer to clinic/hospital department [facility] CLIA# [id number] [address] [place] [address] documented in this encounter Visit Diagnoses Not on filedocumented in this encounter Additional Health Concerns Infection Onset Date Last Indicated Resolved Time R/O COVID-19 02/27/2022 02/27/2022 02/27/2022 5:19 PM CDT documented as of this encounter Care Teams Diesel Inspector Relationship Specialty Start Date End Date Non-Staff, Physician NO ADDRESS ON FILE PCP - General 07/13/19 documented as of this encounter
--- OUTSIDE RECORDS SUMMARY | 2025-03-05 14:07 | XMS_ITS | Encounter Summary ---
Author Organization [facility] Address [address] [place] [address] Care Team Providers Care Nut Roaster Name Role Phone Non-Staff, Physician Primary Care Provider Unava ilable Encounter Details Date Type Department Care Team (Latest Contact Info) Description 01/31/[address] 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
--- OUTSIDE RECORDS SUMMARY | 2025-03-05 14:07 | XMS_ITS | Encounter Summary ---
Author Organization [facility] Address [address] [place] [address] Care Team Providers Care Clinical Informatics Specialist Name Role Phone Non-Staff, Physician Primary Care Provider Unava ilable Encounter Details Date Type Department Care Team (Latest Contact Info) Description 01/31/2006 Outpatient Historical [facility] Family Medicine- [place] [address] [place] [address] Kiara Alonzo MD NO ADDRESS ON FILE Allergic Rhinitis, Cause Unspecified (Primary Dx) Social History Tobacco Use Types Packs/Day Years Used Date Smoking Tobacco: Never Assessed Comments Unknown Sex and Gender Information Value Date Recorded Sex Assigned at Not on file 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
--- OUTSIDE RECORDS SUMMARY | 2025-03-05 14:07 | XMS_ITS | Encounter Summary ---
Author Organization [facility] Address [address] [place] [address] Care Team Providers Care Fine Jewelry Sales Associate Name Role Phone Non-Staff, Physician Primary Care Provider Unava ilable Encounter Details Date Type Department Care Team (Latest Contact Info) Description 06/15/2006 Outpatient Historical [facility] Family Medicine- [place] [address] [place] [address] Tommy Maldonado NP NO ADDRESS ON FILE Acute Sinusitis, Unspecified (Primary Dx) Social History Tobacco Use Types Packs/Day Years Used Date Smoking Tobacco: Never Assessed Comments Unknown Sex and Gender Information Value Date Recorded Sex Assigned at Not on file 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
--- OUTSIDE RECORDS SUMMARY | 2025-03-05 14:07 | XMS_ITS | Clinical Summary ---
Author Organization [facility] Address [address] [place] [address] Care Team Providers Care Cable Television Program Director Name Role Phone Non-Staff, Physician Primary Care Provider Unava ilable Allergies Active Allergy Reactions Criticality Noted Date Comments Erythromycin Swelling Low 11/07/2008 Estradiol Other (See Comments) 11/07/2008 Caused menstrual bleeding Levofloxacin Other (See Comments) 06/22/2010 Numbness around mouth and palpations. Lincomycin Other (See Comments) 04/08/2015 Urinated blood Sulfa (Sulfonamide Antibiotics) Hives High 11/07/2008 Unclassified Drug Swelling Low 11/07/2008 Medications propranolol (INDERAL) 40 mg Oral tablet Take 40 mg by mouth 2 times daily. Active cetirizine (ZYRTEC) 10 mg Oral tablet Take 10 mg by mouth daily. Active L GASSERI/B BIFIDUM/B LONGUM (PROBIOTIC COLON CARE ORAL) Take by mouth 1 time daily as needed. Active ibuprofen (ADVIL) 200 mg tablet Take 400 mg by mouth every 6 hours as needed for Pain, Mild. Active calcium-vitamin D3-vitamin K 500-100-40 mg-unit-mcg Tablet, Chewable Take 1 Tablet by mouth 2 times daily . Active fluticasone (FLONASE) 50 mcg/spray [place], Suspension Administer 1 [place] in each nostril daily. 16 Gram 11 09/15/ 8 Active amitriptyline (ELAVIL) 25 mg tablet Take 1 Tablet (25 mg) by mouth daily at bedtime. 30 Tablet 1 8 Active azelastine (OPTIVAR) 0.05 % solution Administer 1 Drop in both eyes 2 times daily. 6 mL 5 8 Active cetirizine (ZyrTEC) 10 mg tablet Take 1 Tablet (10 mg) by mouth daily For allergies. 30 Tablet 1 8 Active montelukast (SINGULAIR) 10 mg tablet Take 1 Tablet (10 mg) by mouth daily at bedtime For allergies. 30 Tablet 3 8 Active triamcinolone acetonide (KENALOG) 0.5 % Ointment Apply one application daily as needed. 15 Gram 8 Active iron/vitamin B complex/min (GERIATRIC VITAMIN ORAL) Take 1 Tablet by mouth daily. Active Active Problems Problem Noted Date Diagnosed Date Acute pyloric channel ulcer 03/06/2013 Personal history of colonic polyps 03/06/2013 Dyspepsia and other specifie d disorders of function of stomach 02/22/2013 Change in bowel habits 02/22/2013 History of reactive hypoglycemia 02/22/2013 Malar and maxillary bones, closed fracture 04/01 Orbital fracture 04/01/2011 Fracture, zygoma closed 04/01/2011 Generalized anxiety disorder 11/07/2008 Irritable colon syndrome 11/07/2008 Mitral valve prolapse 11/07/2008 Immunizations Immunization Administration Dates Next Due (ADACEL/BOOSTRIX)(10 YR UP) TDAP VACCINE, 0.5ML, IM 03/18/2016 Influenza Seasonal Unspecified Formulation IM ,03/20/2012 Family History Medical History Relation Name Comments Other Brother 2 Healthy Brother 3 Cancer Father Hypertension Mother Stroke Mother Relation Name Status Comments Brother 1 Alive Brother 2 Brother 3 Alive Father Mother Social History Tobacco Use Types Packs/Day Years Used Date Smoking Tobacco: Former Cigarettes Q uit: 04/04/1961 Smokeless Tobacco: Never Tobacco Cessation:Counseling Given: Yes Alcohol Use Standard Drinks/Week Comments Yes 0 (1 standard drink = 0.6 oz pur e alcohol) occasional wine Comments No Sex and Gender Information Value Date Recorded Sex Assigned at Not on file Legal Sex Female 3:23 AM BUSINESS INTELLIGENCE ARCHITECT Gender Identity Not on file Sexual Orientation Not on file Occupation Industry Job Start Date Job End Date Not on file Not on file Not on file Not on file Last Filed Vital Signs Vital Sign Reading Time Taken Comments Blood Pressure 178/87 03/02/2019 1:10 PM CDT Pulse 70 01/04/2018 3:13 PM CDT Temperature 36.8 C (98.3 F) 03/02/2019 1:10 PM CDT Respiratory Rate 20 03/02/2019 1:10 PM CDT Oxygen Saturation 99% 03/02/2019 1:10 PM CDT Inhaled Oxygen Concentration - - Weight 56.3 kg (124 lb 3.2 oz) 03/02/2019 12:24 PM CDT Height 154.9 cm (5' 1 ) 03/02/2019 12:24 PM CDT Body Mass Index 23.47 03/02/2019 12:24 PM CDT Plan of Treatment Health Maintenance Due Date Last Done Comments PNEUMOCOCCAL VACCINE 50+ YEA RS (1 of 1 - PCV) 1991 ZOSTER VACCINE (1 of 2) 1991 RSV VACCINE (60+ or ) (1 - 1-dose 75+ series) 2016 COLORECTAL SCREENING 02/27/2018 02/27/2013 OSTEOPOROSIS SCREENING 07/19/2021 07/19/2016 INFLUENZA VACCINE (#1) 2025 04/29/2015, 2011 DTAP/TDAP/TD VACCINES (2 - Td or Tdap) 03/18/2026 Medical Devices Implanted Type Area Group Product Manager Device Identifier Shelf Expiration Date Model / Serial / Lot Log - [employer] Ttnm Matrixmidface - 1 - Plate-L Oblique Matrixmidface 395 Implanted:Qty: 1 on 04/13/2011 at [facility] Plate Right: Zyg[employer] SYNTHES-STRATEC - MAXIFACIAL .395 / / LOAD # [id number] Log - [employer] Ttnm Matrixmidface - 1 - Plate Orb Rim Matrixmidface .343 Implanted:Qty: 1 on 04/13/2011 at [facility] Plate Right: [employer] SYN[employer]-STRATEC - MAXIFACIAL .503.343 / / LOAD # [id number] Log [id number] - Synthes Ttnm Matrixmidface - 1 - Screw Matrixmidface Sd 5mm .225 Implanted:Qty: 2 on 04/13/2011 at [facility] Screw Right: [employer] SY[employer]STRATEC - MAXIFACIAL 04.503.225. 01 / / LOAD # [id number] Log [id number] - Synthes Ttnm Matrixmidface - 1 - Screw Matrixmidface Sd 6mm 04.503.226 Implanted:Qty: 4 on 04/13/2011 at [facility] Screw Right: [employer]AT[employer] - MAXIFACIAL 04.503.226. 01 / / LOAD # [id number] Log [id number] - Synthes Ttnm Matrixmidface - 1 - Screw Matrixmidface Sd 4mm [id number] Implanted:Qty: 6 on 04/13/2011 at [facility] Screw Right: [employer]AT[employer] - MAXIFACIAL 04.503.224. 01 / / LOAD # [id number] Log [id number] - Synthes Ttnm Matrixmidface - 1 - Screw Matrixmidface Emrgncy 4mm 04.503.234 Implanted:Qty: 1 on 04/13/2011 at [facility] Screw Right: [employer] - MAXIFACIAL 04.503.234. 01 / / LOAD # [id number] Procedures Procedure Name Priority Date/Time Associated Diagnosis Comments XR DEXA BONE DENSITY AXIAL 1 OR MORE SITES Routine 07/19/2016 1:55 PM BUSINESS INTELLIGENCE ARCHITECT Bariatric surgery status from Last 3 Months or Most Recently Relevant to Health Maintenance Results * XR DEXA BONE DENSITY AXIAL 1 OR MORE SITES (07/19/2016 1:55 PM BUSINESS INTELLIGENCE ARCHITECT) Anatomical Region Laterality Modality Digital Radiogra phy 07/19/2016 1:55 PM BUSINESS INTELLIGENCE ARCHITECT Impressions 07/19/2016 4:00 PM BUSINESS INTELLIGENCE ARCHITECT IMPRESSION: Abnormal examination Bone density lies in the [...] as clinically needed. Narrative 07/19/2016 4:00 PM BUSINESS INTELLIGENCE ARCHITECT DEXA Evaluation of the Lumbar Spine and [...] -0.6 Procedure Note Maxime Hill MD - 07/19/2016 DEXA Evaluation of the Lumbar Spine and [...] Adult T-score: -2.3 Adult Z-score: -0.6 IMPRESSION IMPRESSION: Abnormal examination Bone density lies in the [...] Most Recently Relevant to Health Maintenance [place] [place] [id number] [facility] DUAL COMPLETE [facility] PPO D-SNP Advance Directives For more information, please contact: [phone] * Full Code (Latest Code Status on File) Date Activated Date Inactivated Comments 02/27/2013 9:24 AM 02/27/2013 12:32 PM * Full Code Date Activated Date Inactivated Comments 02/26/2013 11:40 AM 02/27/2013 9:24 AM * Full Code Date Activated Date Inactivated Comments 04/13/2011 11:14 PM 04/14/2011 4:31 PM * Full Code Date Activated Date Inactivated Comments 04/13/2011 1:44 PM 04/13/2011 11:14 PM * Full Code Date Activated Date Inactivated Comments 04/13/2011 10:48 AM 04/13/2011 1:44 PM Care Teams Cable Television Program Director Relationship Specialty Start Date End Date Non-Staff, Physician NO ADDRESS ON FILE PCP - General 07/13/19
[2025-03-05 14:21] LABS: Alanine Aminotransferase 10 U/L (0-33); Albumin Level 4.3 g/dL (3.5-5.2); Alkaline Phosphatase 98 U/L (35-105); Anion Gap 15.0 (5-19); Aspartate Amino Transferase 19 U/L (0-32); Blood Urea Nitrogen 11 mg/dL (8-23); Calcium 9.1 mg/dL (8.5-10.5); Carbon Dioxide 26 mmol/L (22-29); Chloride 98 mmol/L (98-107); Globulin 2.6 g/dL (1.3-4.6); Glucose 89 mg/dL (65-115); Osmolality Calculated 279 mOsm/kg (285-295); Potassium 4.0 mmol/L (3.5-5.1); Sodium 135 mmol/L (136-145); Total Protein 6.9 g/dL (6.6-8.7)
--- NOTE | 2025-03-05 14:24 | CT_ITS ---
WS: [id number] CT ABDOMEN AND PELVIS NONCONTRAST HISTORY: flank pain TECHNIQUE: Imaging performed through the abdomen and pelvis. Coronal and sagittal reformats are submitted. All CT scans at [facility] use at least one of these dose optimization techniques: automated exposure control; mA and/or kV adjustment per patient size (includes targeted exams where dose is matched to clinical indication); or iterative reconstruction. DLP: 308.76 mGy.cm COMPARISON: None available. Lower thorax: Centrilobular emphysema at the lung bases. Moderate cardiomegaly. Moderate hiatal hernia. Liver: Normal size liver. No mass or bile duct dilatation. Gallbladder: Cholelithiasis without evidence for acute cholecystitis. No intrahepatic duct dilatation. Pancreas: Normal size and attenuation. Normal pancreatic duct. No pancreatitis or mass. Spleen: Normal. Adrenal glands: Normal. No mass. Right kidney: Normal size kidney with no mass or hydronephrosis. Ureter is not dilated. Left kidney: Normal size kidney with no mass or hydronephrosis. Ureter is not dilated. There is very some increased density in the distal LEFT ureter which may be some small stones. There is also mild artifact. Aorta: Mild atherosclerosis abdominal aorta with no aneurysm. No free fluid, intraperitoneal air or significant lymphadenopathy. GI tract: Postsurgical changes at the stomach. Mild fluid distention of the small bowel and colon. No transition point or site of obstruction. Normal appendix. Descending colon and sigmoid diverticulosis without evidence for acute diverticulitis. There is a fat-containing ovoid mass in the sigmoid measuring 3.9 x 2.3 cm consistent with a lipoma which is not causing an obstruction at this time. Abdominal wall: Negative. No hernia. Pelvis: Poorly distended urinary bladder. There is bladder wall thickening and mild stranding in the fat surrounding the bladder. No stones within the bladder. Osseous structures: Mild anterior wedging of T12. CT/CT kidney stone 11312 IMPRESSION: 1. No renal obstruction or renal calcifications. 2. Mild diffuse bladder wall thickening may be due to cystitis or under disten tion. There is a small amount of adjacent fat stranding suggesting underlying c ystitis. 3. Tiny calcification in the distal LEFT ureter is not excluded. 4. Normal appendix. 5. Sigmoid diverticulosis without acute diverticulitis. 6. Lipomatous mass in the sigmoid not causing significant obstruction. 7. Cholelithiasis. 8. Mild fluid distention of the small bowel and colon but no obstructive patte rn.
--- NOTE | 2025-03-05 15:09 | PC.PHAR ---
Pt is from [facility]
--- NOTE | 2025-03-05 15:26 | W.ED.ABDPA2 ---
HPI - Abdominal Pain General: Chief Complaint: Abdominal Pain Stated Complaint: Blood in Urine Time Seen by Provider: 03/05/25 13:32 History of Present Illness: 84-year-old female presents emergency room with complaint of hematuria. Began overnight has persisted she has frequency of urination she denies any fever sweats chills no flank pain. She has not previously had this. No dysuria urgency. No history of any trauma she is not on any oral anticoagulants. Associated Symptoms: Reports hematuria; Denies chills, dysuria and fever(s) Related Data Home Medications ?Medication ?Instructions ?Recorded ?Confirmed [id number] 45 mg-folic 1 cap PO QAM 09/02/19 03/05/25 acid 800 mcg-vit K 120 mcg capsule (Bariatric Multivitamins) acetaminophen 325 mg capsule 650 mg PO Q6H PRN Pain 09/28/24 03/05/25 brexpiprazole 0.5 mg tablet 0.5 mg PO QAM 09/28/24 03/05/25 (Rexulti) magnesium hydroxide 2,400 mg/10 mL 30 ml PO DAILY PRN Constipation 09/28/24 03/05/25 oral suspension (Milk Of Magnesia Concentrated) naloxone 2 mg/2 mL syringe kit 2 mg IM Q2M PRN overdose 09/28/24 03/05/25 (LifEMS Naloxone) polyethylene glycol 3350 17 gram 17 g PO QPM Constipation 09/28/24 03/05/25 oral powder packet (Miralax) sennosides 8.6 mg tablet (senna) 8.6 mg PO BID 09/28/24 03/05/25 aluminum-mag hydroxide-simethicone 30 ml PO Q6H PRN Indigestion 10/18/24 03/05/25 200 mg-200 mg-20 mg/5 mL oral susp (Clarisa-Lanta) calcium 500 mg (as 1 tab PO QAM 10/18/24 03/05/25 carbonate)-vitamin D3 5 mcg (200 unit) tablet (Calcium 500 + D) citalopram 30 mg capsule 30 mg PO QAM 10/18/24 03/05/25 clopidogrel 75 mg tablet 75 mg PO DAILY 10/18/24 03/05/25 gabapentin 100 mg capsule 100 mg PO BEDTIME 10/18/24 03/05/25 gabapentin 100 mg capsule 200 mg PO QAM 10/18/24 03/05/25 galantamine 8 mg tablet 8 mg PO BID 10/18/24 03/05/25 lisinopril 30 mg tablet 30 mg PO DAILY 10/18/24 03/05/25 propranolol 10 mg tablet 10 mg PO BEDTIME 10/18/24 03/05/25 Lactobacillus acidophilus 2,000 mmu cells PO DAILY 03/05/25 03/05/25 (Acidophilus capsule) loratadine 10 mg tablet (Claritin) 10 mg PO QAM 03/05/25 03/05/25 melatonin 5 mg tablet 5 mg PO BEDTIME 03/05/25 03/05/25 Previous Rx's ?Medication ?Instructions ?Recorded oxygen #1 ea 05/23/23 memantine 10 mg tablet 10 mg PO BID 90 days #180 tabs 04/13/24 Fast Form #1 ea 11/06/24 Right fast form #1 ea 11/06/24 Allergies Allergy/AdvReac Type Severity Reaction Status Date / Time ciprofloxacin (From Cipro) Allergy Mild rash Verified 12/13/24 13:02 dicyclomine (From Bentyl) Allergy Mild rash Verified 12/13/24 13:02 erythromycin base Allergy Mild sick Verified 12/13/24 13:02 lincomycin Allergy Mild sick Verified 12/13/24 13:02 Penicillins Allergy Mild sick Verified 12/13/24 13:02 Sulfa (Sulfonamide Allergy Mild sick Verified 12/13/24 13:02 Antibiotics) tolterodine (From Detrol) Allergy Mild sick Verified 12/13/24 13:02 Review of Systems Const: Denies: fever(s) or chills Card: Denies: chest pain Resp: Denies: dyspnea GI: Denies: abdominal pain : Reports: urinary frequency and hematuria; Denies: dysuria or urinary urgency Musc: Denies: neck pain or back pain Skin/Breast: Denies: rash PFSH ED PFSH: Medical History Cholelithiases Bradycardia Normal esophagogastroduodenoscopy (EGD) Mitral valve prolapse Mixed hyperlipidemia Anxiety Essential hypertension Surgical History H/O colonoscopy S/P bladder repair S/P gastric surgery Family History Mother Stroke Hypertension Denies family history of Diabetes Hyperlipidemia Lung disease Cancer Social History Smoking and tobacco/nicotine status: former use of tobacco/nicotine Quit status (tobacco/nicotine): has quit using Year quit tobacco: 2007 Former quit date comment: 0.5 ppd X 40 Second hand smoke exposure: No Alcohol intake: never Substance/Drug Use: never Adopted: No Lives independently: Yes Housing: House Do you think of yourself as: Straight/Heterosexual Current gender identity: Female Shirlene/Alevism: [employer] Physical Exam Const: COMMON NORMALS: no acute distress GENERAL APPEARANCE: cooperative and comfortable ORIENTATION/CONSCIOUSNESS: Yes awake HENMT: COMMON NORMALS: normocephalic, atraumatic and hearing grossly normal bilaterally HEAD & SCALP: normocephalic and atraumatic Resp: COMMON NORMALS: normal respiratory effort, No retractions, No use of accessory muscles and clear to auscultation bilaterally AUSCULTATION: clear to auscultation bilaterally Cardio: COMMON NORMALS: regular rate, regular rhythm and No murmurs present (Cardio) RATE: regular rate RHYTHM: regular rhythm GI: COMMON NORMALS: Soft to palpation and No hepatosplenomegaly present AUSCULTATION: Yes normoactive bowel sounds PALPATION: Yes Soft to palpation, No Tenderness to palpation present (GI), No Guarding due to palpation present (GI) and Yes No hepatosplenomegaly present Extremity: COMMON NORMALS: normal to inspection, capillary refill normal, no clubbing, cyanosis or edema, no calf tenderness and no pedal edema Skin: COMMON NORMALS: no rashes or lesions noted GENERAL SKIN EXAM: no rashes or lesions noted Course Vital Signs: Vital signs: Vital Signs Temperature 98.3 F 03/05/25 13:36 Pulse Rate 73 03/05/25 17:53 Respiratory Rate 16 03/05/25 17:53 Blood Pressure 143/96 03/05/25 17:53 Pulse Oximetry 97 03/05/25 17:53 Oxygen Delivery Me thod Room Air 03/05/25 17:45 MDM - Abdominal Pain Medical Decision Making Levine placed bladder irrigated hematuria ceased. Will leave Levine in place in case she begins to have more hematuria can be removed in [address] did not show any significant abnormalities. Patient only had 5-10 white blood cells per high-power field. Antibiotics not initiated at this point wait until cultures resulted. Follow-up with urology Lab Data 03/05/25 13:54 03/05/25 13:54 Labs/Radiology: Radiology Impressions Abdomen/Pelvis CT 03/05/25 14:24 IMPRESSION: 1. No renal obstruction or renal calcifications. 2. Mild diffuse bladder wall thickening may be due to cystitis or under distention. There is a small amount of adjacent fat stranding suggesting underlying cystitis. 3. Tiny calcification in the distal LEFT ureter is not excluded. 4. Normal appendix. 5. Sigmoid diverticulosis without acute diverticulitis. 6. Lipomatous mass in the sigmoid not causing significant obstruction. 7. Cholelithiasis. 8. Mild fluid distention of the small bowel and colon but no obstructive pattern. Laboratory Results WBC 9.64 10^3/uL (3.29-11.43) 03/05/25 13:54 RBC 4.18 10^6/uL (3.85-5.65) 03/05/25 13:54 Hgb 12.30 g/dL (11.27-16.99) 03/05/25 13:54 Hct 37.9 % (36-47) 03/05/25 13:54 MCV 90.7 fl (85-98) 03/05/25 13:54 MCH 29.4 pg (27-33) 03/05/25 13:54 MCHC 32.5 g/dL (30-55) 03/05/25 13:54 RDW 14.2 % (12.1-15.1) 03/05/25 13:54 Plt Count 253 10^3/cmm (157-399) 03/05/25 13:54 MPV 9.3 fL (7.4-10.4) 03/05/25 13:54 Neut % (Auto) 79.1 % 03/05/25 13:54 Lymph % (Auto) 10.7 % 03/05/25 13:54 [place] % (Auto) 7.4 % 03/05/25 13:54 Eos % (Auto) 2.1 % 03/05/25 13:54 Baso % (Auto) 0.4 % 03/05/25 13:54 Neut # (Auto) 7.63 10^3/uL (1.8-7.7) 03/05/25 13:54 Lymph # (Auto) 1.0 10^3/uL (0.8-4.8) 03/05/25 13:54 [place] # (Auto) 0.7 10^3/uL (0.2-0.9) 03/05/25 13:54 Eos # (Auto) 0.2 10^3/uL (0.0-0.8) 03/05/25 13:54 Baso # (Auto) 0.0 10^3/uL (0.0-0.1) 03/05/25 13:54 Nucleated RBC % (auto) 0 % 03/05/25 13:54 Nucleated RBCs # 0.0 /100WBC 03/05/25 13:54 Sodium 135 mmol/L (136-145) L 03/05/25 13:54 Potassium 4.0 mmol/L (3.5-5.1) 03/05/25 13:54 Chloride 98 mmol/L (98-107) 03/05/25 13:54 Carbon Dioxide 26 mmol/L (22-29) 03/05/25 13:54 Anion Gap 15.0 (5-19) 03/05/25 13:54 BUN 11 mg/dL (8-23) 03/05/25 13:54 Creatinine 0.9 mg/dL (0.5-0.9) 03/05/25 13:54 GFR Calculation Not Reportable 03/05/25 13:54 Glucose 89 mg/dL (65-115) 03/05/25 13:54 Calculated Osmolality 279 mOsm/kg (285-295) L 03/05/25 13:54 Calcium 9.1 mg/dL (8.5-10.5) 03/05/25 13:54 Total Bilirubin 0.4 mg/dL (0.15-1.2) 03/05/25 13:54 AST 19 U/L (0-32) 03/05/25 13:54 ALT 10 U/L (0-33) 03/05/25 13:54 Alkaline Phosphatase 98 U/L (35-105) 03/05/25 13:54 Total Protein 6.9 g/dL (6.6-8.7) 03/05/25 13:54 Albumin 4.3 g/dL (3.5-5.2) 03/05/25 13:54 Globulin 2.6 g/dL (1.3-4.6) 03/05/25 13:54 Urine Color Red (Yellow) A 03/05/25 13:51 Urine Appearance Cloudy (CLEAR) A 03/05/25 13:51 Urine pH TNP 03/05/25 13:51 Ur Specific [place] TNP 03/05/25 13:51 Urine Protein TNP 03/05/25 13:51 Urine Glucose (UA) TNP 03/05/25 13:51 Urine Ketones TNP 03/05/25 13:51 Urine Blood TNP 03/05/25 13:51 Urine Nitrate TNP 03/05/25 13:51 Urine Bilirubin TNP 03/05/25 13:51 Urine Urobilinogen TNP 03/05/25 13:51 Ur Leukocyte Esterase TNP 03/05/25 13:51 Urine RBC >100 /hpf (0-2) H 03/05/25 13:51 Urine WBC 5-10 /hpf (0-5) H 03/05/25 13:51 Ur Squamous Epith Cells 0-4 /hpf (0-5) H 03/05/25 13:51 Amorphous Sediment Not Reportable 03/05/25 13:51 Urine Bacteria Trace /hpf (NONE) 03/05/25 13:51 Hyaline Casts 0-4 /lpf H 03/05/25 13:51 All radiology interpretation(s) finalized by discharge Discharge Plan Discharge Patient Disposition: Home Clinical Impression: Hematuria Condition: Stable Prescriptions: No Action (DME) oxygen See Rx Instructions .Route .MEDSUPPLY Qty: 1 0RF Rx Instructions: pulse ox on RA with ambulation 83% pulse ox on 2 liters with ambulation 98% sennosides [senna] 8.6 mg tablet 8.6 mg PO BID polyethylene glycol 3350 [Miralax] 17 gram powder in packet 17 g PO QPM acetaminophen 325 mg capsule 650 mg PO Q6H PRN (Reason: Pain) magnesium hydroxide [Milk Of Magnesia Concentrated] 2,400 mg/10 mL suspension 30 ml PO DAILY PRN (Reason: Constipation) Rexulti 0.5 mg tablet 0.5 mg PO QAM LifEMS Naloxone 2 mg/2 mL syringe kit 2 mg IM Q2M PRN (Reason: overdose) Rx Instructions: NTExceed 10 mg total dose/episode memantine 10 mg tablet 10 mg PO BID 90 Days Qty: 180 3RF (DME) Right fast form See Rx Instructions .Route .MEDSUPPLY Qty: 1 0RF Rx Instructions: As directed (DME) Fast Form See Rx Instructions .Route .MEDSUPPLY Qty: 1 0RF Rx Instructions: As directed Bariatric Multivitamins 45 mg iron- 800 mcg-120 mcg Capsule 1 cap PO QAM gabapentin 100 mg Capsule 200 mg PO QAM alum-mag hydroxide-simeth [Clarisa-Lanta] 200-200-20 mg/5 mL Suspension 30 ml PO Q6H PRN (Reason: Indigestion) Rx Instructions: administer between meals and at bedtime calcium carbonate-vitamin D3 [Calcium 500 + D] 500 mg-5 mcg (200 unit) Tablet 1 tab PO QAM citalopram 30 mg Capsule 30 mg PO QAM clopidogrel 75 mg tablet 75 mg PO DAILY propranolol 10 mg tablet 10 mg PO BEDTIME lisinopril 30 mg tablet 30 mg PO DAILY gabapentin 100 mg capsule 100 mg PO BEDTIME galantamine 8 mg tablet 8 mg PO BID Acidophilus Capsule 2,000 mmu cells PO DAILY melatonin 5 mg Tablet 5 mg PO BEDTIME loratadine [Claritin] 10 mg tablet 10 mg PO QAM Discharge Orders: Discharge ED (Routine); Ordered 03/05/25 Ordered By: Trevin Cornelius Referrals: Lizandro Madrid MD [Primary Care Provider, Internal Medicine] Discharge Diet: Usual diet Discharge Activity: Resume usual activity Patient Instructions: Opioid Safety, Pain Management, Patient Portal & Ya Instructions Activity Restrictions/Additional Instructions: Thank you for choosing [facility] for your healthcare needs today. It is very important that you follow up as instructed or that you return to the Emergency Department should you have concerns or if your condition changes or worsens in any way. Emergency department visits are focused on emergent conditions, in some cases you may require further evaluation on an outpatient basis. You were seen in the emergency room with complaints of frequency in urination and hematuria. On exam your urine showed hematuria but no signs of actual infection. CT did not show any stones or masses in the kidneys ureters or bladder. A Levine was placed and your bladder was irrigated this to stop the bleeding. Will leave the [place] in place for the next 3 days. If after 3 days there is no further signs of bleeding it can be removed. Case management make arrangements for you to follow-up with urology as an outpatient. (Please note that included in your discharge packet is information concerning opioid safety and pain management. This information is given to all patients were discharged from the ER regardless of their discharge diagnosis or the medicines they usually take or are prescribed.) Print Language: Micronesian Coding Level of Care Code ED Winery Worker for Rudi Mack
--- NOTE | 2025-03-08 02:53 | DCPLANNER ---
Referral Sent to [facility]
== END 2025-03-05 17:54 | disposition home or self-care (01) ==
PROVIDERS: Emergency Provider Family Medicine; PCP Internal Medicine
DX: R31.9 Hematuria, unspecified (principal); Z79.02 Long term (current) use of antithrombotics/antiplatelets; Z87.891 Personal history of nicotine dependence; E78.49 Other hyperlipidemia; I10 Essential (primary) hypertension
CPT/HCPCS: 36415; 51702; 74176; 80053; 81001; 85025; 87086; 99284

== ENCOUNTER 2025-05-02 17:07 | Emergency (ER) | payer MEDICARE, MEDICAID, SELFPAY ==
[2025-05-02 17:08] VITALS: BP 194/83; PULSE 63; RESP 18; TEMP 37.3; O2SAT 97; BMI 22.8
--- NOTE | 2025-05-02 17:08 | CTR_ITS ---
PROCEDURE INFORMATION: Exam: CT Head Without Contrast Exam date and time: 05/02/2025 5:26 PM Age: 84 years old Clinical indication: Injury or trauma; Additional info: Fall, head injury TECHNIQUE: Imaging protocol: Computed tomography of the head without contrast. Radiation optimization: All CT scans at this facility use at least one of these dose optimization techniques: automated exposure control; mA and/or kV adjustment per patient size (includes targeted exams where dose is matched to clinical indication); or iterative reconstruction. COMPARISON: CT head wo con* [id number] 09/02/2019 3:18 PM RADIATION DOSE METRICS: Total DLP (mGy-cm): 1129.5 FINDINGS: Brain: Further increase in severe atrophy. Generalized marked low-attenuation in the white matter most likely representing small vessel ischemic change, further increased compared with the prior exam as well. No evidence of mass effect, intracranial hemorrhage or extra-axial collection. No acute infarct. Cerebral ventricles: See Brain section for description. Paranasal sinuses: Areas of mild mucosal thickening of the paranasal sinuses. Mastoid air cells: Mastoids are within normal limits. Orbital cavities: Orbits are within normal limits except for unchanged features of prior right orbital surgery also present on prior exam. Bones: No evidence of skull fracture. Soft tissues: No significant pathology. CT/CT head wo con* [id number] IMPRESSION: 1. No evidence of acute traumatic injury. 2. Interval increase in features of marked atrophy and white matter changes of probable microvascular origin.
--- NOTE | 2025-05-02 17:09 | CTR_ITS ---
PROCEDURE INFORMATION: Exam: CT Cervical Spine Without Contrast Exam date and time: 05/02/2025 5:26 PM Age: 84 years old Clinical indication: Injury or trauma; Additional info: Fall, neck pain TECHNIQUE: Imaging protocol: Computed tomography of the cervical spine without contrast. Radiation optimization: All CT scans at this facility use at least one of these dose optimization techniques: automated exposure control; mA and/or kV adjustment per patient size (includes targeted exams where dose is matched to clinical indication); or iterative reconstruction. COMPARISON: CT head wo con* [id number] 09/02/2019 3:18 PM RADIATION DOSE METRICS: Total DLP (mGy-cm): 138.2 FINDINGS: Bones: Bones are osteopenic. There is a mild anterolisthesis of C4 on C5 by 2 mm. No acute fracture or dislocation. Moderate degenerative disc disease at C5-C6 and C6-C7. Diffuse degenerative changes of the facet joints, asymmetrically greater on the left. Right maxillary fixation hardware noted. There is a focal lytic lesion in the right posterolateral aspect of the C7 vertebral body (series 8, image 55, series 12, image 44). Lungs: Biapical pleuroparenchymal opacities most consistent with scarring. Thyroid: No thyroid pathology visualized. Soft tissues: No acute soft tissue pathology evident. Other findings: See accompanying head CT for other findings. CT/CT cervical spin wo con* [id number] IMPRESSION: 1. No acute traumatic pathology. Degenerative changes as described. 2. Indeterminate focal lytic lesion of the C7 vertebral body; if there is clinical concern for metastatic disease, bone scan and/or MRI could be performed for further assessment.
--- NOTE | 2025-05-02 17:19 | W.ED.FALL ---
HPI - Fall General: Chief Complaint: Fall Stated Complaint: fall Time Seen by Provider: 05/02/25 17:07 History of Present Illness: 84-year-old woman with a history of hyperlipidemia, anxiety, hypertension, COPD, Alzheimer's disease, hypertension, and anticoagulation on Plavix who presents to the emergency room by ambulance from custodial after having had a fall. Apparently she fell backwards and hit the back of her head. She is complaining of some mild head pain. No obvious bruising. She had some mild neck pain as well. She seems to be back to her baseline. No nausea or vomiting. No focal motor deficits. Related Data Home Medications ?Medication ?Instructions ?Recorded ?Confirmed [id number] 45 mg-folic 1 cap PO QAM 09/02/19 03/05/25 acid 800 mcg-vit K 120 mcg capsule (Bariatric Multivitamins) acetaminophen 325 mg capsule 650 mg PO Q6H PRN Pain 09/28/24 03/05/25 brexpiprazole 0.5 mg tablet 0.5 mg PO QAM 09/28/24 03/05/25 (Rexulti) magnesium hydroxide 2,400 mg/10 mL 30 ml PO DAILY PRN Constipation 09/28/24 03/05/25 oral suspension (Milk Of Magnesia Concentrated) naloxone 2 mg/2 mL syringe kit 2 mg IM Q2M PRN overdose 09/28/24 03/05/25 (LifEMS Naloxone) polyethylene glycol 3350 17 gram 17 g PO QPM Constipation 09/28/24 03/05/25 oral powder packet (Miralax) sennosides 8.6 mg tablet (senna) 8.6 mg PO BID 09/28/24 03/05/25 aluminum-mag hydroxide-simethicone 30 ml PO Q6H PRN Indigestion 10/18/24 03/05/25 200 mg-200 mg-20 mg/5 mL oral susp (Clarisa-Lanta) calcium 500 mg (as 1 tab PO QAM 10/18/24 03/05/25 carbonate)-vitamin D3 5 mcg (200 unit) tablet (Calcium 500 + D) citalopram 30 mg capsule 30 mg PO QAM 10/18/24 03/05/25 clopidogrel 75 mg tablet 75 mg PO DAILY 10/18/24 03/05/25 gabapentin 100 mg capsule 100 mg PO BEDTIME 10/18/24 03/05/25 gabapentin 100 mg capsule 200 mg PO QAM 10/18/24 03/05/25 galantamine 8 mg tablet 8 mg PO BID 10/18/24 03/05/25 lisinopril 30 mg tablet 30 mg PO DAILY 10/18/24 03/05/25 propranolol 10 mg tablet 10 mg PO BEDTIME 10/18/24 03/05/25 Lactobacillus acidophilus 2,000 mmu cells PO DAILY 03/05/25 03/05/25 (Acidophilus capsule) loratadine 10 mg tablet (Claritin) 10 mg PO QAM 03/05/25 03/05/25 melatonin 5 mg tablet 5 mg PO BEDTIME 03/05/25 03/05/25 Previous Rx's ?Medication ?Instructions ?Recorded oxygen #1 ea 05/23/23 memantine 10 mg tablet 10 mg PO BID 90 days #180 tabs 04/13/24 Fast Form #1 ea 11/06/24 Right fast form #1 ea 11/06/24 Allergies Allergy/AdvReac Type Severity Reaction Status Date / Time ciprofloxacin (From Cipro) Allergy Mild rash Verified 12/13/24 13:02 dicyclomine (From Bentyl) Allergy Mild rash Verified 12/13/24 13:02 erythromycin base Allergy Mild sick Verified 12/13/24 13:02 lincomycin Allergy Mild sick Verified 12/13/24 13:02 Penicillins Allergy Mild sick Verified 12/13/24 13:02 Sulfa (Sulfonamide Allergy Mild sick Verified 12/13/24 13:02 Antibiotics) tolterodine (From Detrol) Allergy Mild sick Verified 12/13/24 13:02 Review of Systems Narrative: Constitutional symptoms: Negative except as documented in HPI. Skin symptoms: Negative except as documented in HPI. Eye symptoms: Negative except as documented in HPI. ENMT symptoms: Negative except as documented in HPI. Respiratory symptoms: Negative except as documented in HPI. Cardiovascular symptoms: Negative except as documented in HPI. Gastrointestinal symptoms: Negative except as documented in HPI. Genitourinary symptoms: Negative except as documented in HPI. Musculoskeletal symptoms: Negative except as documented in HPI. Neurologic symptoms: Negative except as documented in HPI. Psychiatric symptoms: Negative except as documented in HPI. Endocrine symptoms: Negative except as documented in HPI. PFSH ED PFSH: Medical History (Updated 05/02/25 @ 18:47 by Octavia Forrest MD) Cholelithiases Bradycardia Normal esophagogastroduodenoscopy (EGD) Mitral valve prolapse Mixed hyperlipidemia Anxiety Essential hypertension Surgical History H/O colonoscopy S/P bladder repair S/P gastric surgery Family History Mother Stroke Hypertension Denies family history of Diabetes Hyperlipidemia Lung disease Cancer Social History Smoking and tobacco/nicotine status: former use of tobacco/nicotine Quit status (tobacco/nicotine): has quit using Year quit tobacco: 2007 Former quit date comment: 0.5 ppd X 40 Second hand smoke exposure: No Alcohol intake: never Substance/Drug Use: never Adopted: No Lives independently: Yes Housing: House Do you think of yourself as: Straight/Heterosexual Current gender identity: Female Shirlene/Taoism: Mormonism [employer] Physical Exam Narrative: EXAM NARRATIVE: General: Alert, no acute distress. Skin: Warm, dry. Head: Normocephalic, atraumatic. Neck: Supple, trachea midline. Eye: Extraocular movements are intact. Ears, nose, mouth and throat: mucosa moist. Cardiovascular: Regular, Normal peripheral perfusion. Respiratory: Lungs are clear to auscultation, respirations are non-labored, breath sounds are equal, Symmetrical chest wall expansion. Gastrointestinal: Soft, Nontender, Non distended Musculoskeletal: Normal ROM, no deformity. Neurological: Alert, No focal neurological deficit observed. Psychiatric: Cooperative, appropriate mood & affect. 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 I reviewed the patient's medical record. 84-year-old woman with a history of hyperlipidemia, anxiety, hypertension, COPD, Alzheimer's disease, hypertension, and anticoagulation on Plavix I reviewed the patient's current home meds Patient is on Plavix Alternate historians: EMS Differential diagnosis including but not limited to and based on the above HPI, review of systems and physical exam: patient with fall and head injury with neck pain. Subdural hematoma, subarachnoid hemorrhage, concussion, skull fracture. Also concern for cervical fracture versus cervical strain. Orders placed to evaluate differential diagnosis based on the above differential, HPI and physical exam CT scan of the head and neck were ordered. CT head: Senescent changes. No acute intracranial process. No intracranial hemorrhage, no evidence of infarct. No evidence of acute fracture. This was reviewed and interpreted by myself the emergency room physician. I also reviewed the radiology report. CT of the cervical spine: Cystic structure. She has no acute focal pain at this time. No fracture. Good alignment. No step-offs. This was reviewed and interpreted by myself the emergency room physician. I also reviewed the radiologist report. Assessment of risk: Level of risk: Moderate risk. Elderly. Anticoagulated on Plavix. Hospitalization considerations: No indications for admission. Reexamination: Patient remained stable. No increased work of breathing. No altered mental status. No focal motor deficits. Assessment and plan: Fall Head injury - Discharged home - Discussed plan with patient. Answered any questions. - Evaluation and treatment of this problem were appropriate in the emergency setting. Lab Data Radiology Impressions Head CT 05/02/25 17:08 IMPRESSION: 1. No evidence of acute traumatic injury. 2. Interval increase in features of marked atrophy and white matter changes of probable microvascular origin. Cervical Spine CT 05/02/25 17:09 IMPRESSION: 1. No acute traumatic pathology. Degenerative changes as described. 2. Indeterminate focal lytic lesion of the C7 vertebral body; if there is clinical concern for metastatic disease, bone scan and/or MRI could be performed for further assessment. All radiology interpretation(s) finalized by discharge Discharge Plan Discharge Patient Disposition: Home Clinical Impression: Fall, Head injury Condition: Stable Prescriptions: No Action (DME) oxygen See Rx Instructions .Route .MEDSUPPLY Qty: 1 0RF Rx Instructions: pulse ox on RA with ambulation 83% pulse ox on 2 liters with ambulation 98% sennosides [senna] 8.6 mg tablet 8.6 mg PO BID polyethylene glycol 3350 [Miralax] 17 gram powder in packet 17 g PO QPM acetaminophen 325 mg capsule 650 mg PO Q6H PRN (Reason: Pain) magnesium hydroxide [Milk Of Magnesia Concentrated] 2,400 mg/10 mL suspension 30 ml PO DAILY PRN (Reason: Constipation) Rexulti 0.5 mg tablet 0.5 mg PO QAM LifEMS Naloxone 2 mg/2 mL syringe kit 2 mg IM Q2M PRN (Reason: overdose) Rx Instructions: NTExceed 10 mg total dose/episode memantine 10 mg tablet 10 mg PO BID 90 Days Qty: 180 3RF (DME) Right fast form See Rx Instructions .Route .MEDSUPPLY Qty: 1 0RF Rx Instructions: As directed (DME) Fast Form See Rx Instructions .Route .MEDSUPPLY Qty: 1 0RF Rx Instructions: As directed Bariatric Multivitamins 45 mg iron- 800 mcg-120 mcg Capsule 1 cap PO QAM gabapentin 100 mg Capsule 200 mg PO QAM alum-mag hydroxide-simeth [Clarisa-Lanta] 200-200-20 mg/5 mL Suspension 30 ml PO Q6H PRN (Reason: Indigestion) Rx Instructions: administer between meals and at bedtime calcium carbonate-vitamin D3 [Calcium 500 + D] 500 mg-5 mcg (200 unit) Tablet 1 tab PO QAM citalopram 30 mg Capsule 30 mg PO QAM clopidogrel 75 mg tablet 75 mg PO DAILY propranolol 10 mg tablet 10 mg PO BEDTIME lisinopril 30 mg tablet 30 mg PO DAILY gabapentin 100 mg capsule 100 mg PO BEDTIME galantamine 8 mg tablet 8 mg PO BID Acidophilus Capsule 2,000 mmu cells PO DAILY melatonin 5 mg Tablet 5 mg PO BEDTIME loratadine [Claritin] 10 mg tablet 10 mg PO QAM Discharge Orders: Discharge ED (Routine); Ordered 05/02/25 Ordered By: Octavia Forerst Referrals: Lizandro Madrid MD [Primary Care Provider, Internal Medicine] Discharge Diet: Usual diet Discharge Activity: Increase activity as tolerated Patient Instructions: Fall Prevention for Older Adults (ED), Opioid Safety, Pain Management, Patient Portal & Ya Instructions Activity Restrictions/Additional Instructions: Thank you for choosing [facility] for your healthcare needs today. You have been screened and evaluated and felt safe for discharge. Health conditions do change or evolve sometimes and as such it is important that you follow up with your Primary Doctor to be re checked, 3-5 days is a general good time frame for follow up. You are always welcome to return to the ED for re assessment if your symptoms are worsening or you have new concerns Print Language: Japanese Coding Level of Care Code ED Folder Machine for Rudi Mack
--- OUTSIDE RECORDS SUMMARY | 2025-05-02 17:23 | XMS_ITS | Encounter Summary ---
Author Organization [facility] Address [address] [place] [address] Care Team Providers Care Front Clerk Name Role Phone Non-Staff, Physician Primary Care Provider Unava ilable Encounter Details Date Type Department Care Team (Latest Contact Info) Description 01/31/2007 Outpatient Historical [facility] Family Medicine [place] [address] [facility] [address] [place] [id number] Tommy Maldonado NP NO ADDRESS ON FILE Skin Sensation Disturb (Primary Dx); Unspecified Backache Social History Tobacco Use Types Packs/Day Years Used Date Smoking Tobacco: Never Assessed Comments Unknown Sex and Gender Information Value Date Recorded Sex Assigned at Not on file Legal Sex Female 3:23 AM 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
--- OUTSIDE RECORDS SUMMARY | 2025-05-02 17:23 | XMS_ITS | Encounter Summary ---
Author Organization [facility] Address [address] [place] [address] Care Team Providers Care Financial Services Professional Name Role Phone Non-Staff, Physician Primary Care Provider Unava ilable Encounter Details Date Type Department Care Team (Latest Contact Info) Description 06/15/2006 Outpatient Historical [facility] Family Medicine- [place] [address] [address] Tommy Maldonado NP NO ADDRESS ON FILE Acute Sinusitis, Unspecified (Primary Dx) Social History Tobacco Use Types Packs/Day Years Used Date Smoking Tobacco: Never Assessed Comments Unknown Sex and Gender Information Value Date Recorded Sex Assigned at Not on file Legal Sex Female 3:23 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
--- OUTSIDE RECORDS SUMMARY | 2025-05-02 17:23 | XMS_ITS | Encounter Summary ---
Author Organization [facility] Address [address] [place] [address] Care Team Providers Care Docking Pilot Name Role Phone Non-Staff, Physician Primary Care Provider Unava ilable Encounter Details Date Type Department Care Team (Latest Contact Info) Description 03/10/2006 Outpatient Historical [facility] Family Medicine [place] [address] [facility] [address] [place] [address] Kiara Alonzo MD NO ADDRESS ON FILE Mitral Valve Disorder (Primary Dx) Social History Tobacco Use Types Packs/Day Years Used Date Smoking Tobacco: Never Assessed Comments Unknown Sex and Gender Information Value Date Recorded Sex Assigned at Not on file Legal Sex Female 3:23 AM VOICE WRITING REPORTER Gender Identity Not on file Sexual Orientation Not on file documented as of this encounter Plan of Treatment Not on file documented as of this encounter Visit Diagnoses Diagnosis Mitral valve disorder- Primary Mitral valve disorders documented in this encounter Care Teams Docking Pilot Relationship Specialty Start Date End Date Non-Staff, Physician NO ADDRESS ON FILE PCP - General 07/13/19 documented as of this encounter
--- OUTSIDE RECORDS SUMMARY | 2025-05-02 17:23 | XMS_ITS | Encounter Summary ---
Author Organization [facility] Address [address] [place] [address] Care Team Providers Care Laminating Machine Operator Name Role Phone Non-Staff, Physician Primary Care Provider Unava ilable Encounter Details Date Type Department Care Team (Latest Contact Info) Description 03/09/2007 Outpatient Historical [facility] Family Medicine [place] [address] [facility] [address] [place] [address] Kiara Alonzo MD NO ADDRESS ON FILE Mitral Valve Disorder (Primary Dx) Social History Tobacco Use Types Packs/Day Years Used Date Smoking Tobacco: Never Assessed Comments Unknown Sex and Gender Information Value Date Recorded Sex Assigned at Not on file Legal Sex Female 3:23 AM 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
--- OUTSIDE RECORDS SUMMARY | 2025-05-02 17:23 | XMS_ITS | Encounter Summary ---
Author Organization [facility] Address [address] [place] [address] Care Team Providers Care Utility Assembler Name Role Phone Non-Staff, Physician Primary Care Provider Unava ilable Encounter Details Date Type Department Care Team (Latest Contact Info) Description 07/06/2006 Outpatient Historical [facility] Family Medicine- [place] [address] [address] Tommy Maldonado NP NO ADDRESS ON FILE Unspecified Symptom Associated with Female Genital Organs (Primary Dx); Dysuria Social History Tobacco Use Types Packs/Day Years Used Date Smoking Tobacco: Never Assessed Comments Unknown Sex and Gender Information Value Date Recorded Sex Assigned at Not on file Legal Sex Female 3:23 AM BEEF LUGGER Gender Identity Not on file Sexual Orientation Not on file documented as of this encounter Plan of Treatment Not on file documented as of this encounter Visit Diagnoses Diagnosis Unspecified symptom associated with female genital organs- Primary Dysuria documented in this encounter Care Teams Utility Assembler Relationship Specialty Start Date End Date Non-Staff, Physician NO ADDRESS ON FILE PCP - General 07/13/19 documented as of this encounter
--- OUTSIDE RECORDS SUMMARY | 2025-05-02 17:23 | XMS_ITS | Encounter Summary ---
Author Organization [facility] Address [address] [place] [address] Care Team Providers Care Destaticizer Feeder Name Role Phone Non-Staff, Physician Primary Care Provider Unava ilable Encounter Details Date Type Department Care Team (Latest Contact Info) Description 01/31/2006 Outpatient Historical [facility] Family Medicine- [place] [address] [place] [address] Kiara Alonzo MD NO ADDRESS ON FILE Allergic Rhinitis, Cause Unspecified (Primary Dx) Social History Tobacco Use Types Packs/Day Years Used Date Smoking Tobacco: Never Assessed Comments Unknown Sex and Gender Information Value Date Recorded Sex Assigned at Not on file Legal Sex Female 3:23 AM CORRECTIONAL CASE RECORDS SUPERVISOR Gender Identity Not on file Sexual Orientation Not on file documented as of this encounter Plan of Treatment Not on file documented as of this encounter Visit Diagnoses Diagnosis Allergic rhinitis, cause unspecified- Primary documented in this encounter Care Teams Destaticizer Feeder Relationship Specialty Start Date End Date Non-Staff, Physician NO ADDRESS ON FILE PCP - General 07/13/19 documented as of this encounter
--- OUTSIDE RECORDS SUMMARY | 2025-05-02 17:23 | XMS_ITS | Encounter Summary ---
Author Organization [facility] Address [address] [place]: Epic Prelude ADT [place] [address] Care Team Providers Care Advanced Manager Name Role Phone Non-Staff, Physician Primary Care [...] on file Legal Sex Female 3:23 AM GIS DEVELOPER Gender Identity Not on file Sexual Orientation [...] on filedocumented in this encounter Care Teams Advanced Manager Relationship Specialty Start Date End Date Non-Staff, Physician NO ADDRESS ON FILE PCP - General 07/13/19 documented as of this encounter
--- OUTSIDE RECORDS SUMMARY | 2025-05-02 17:23 | XMS_ITS | Clinical Summary ---
Author Organization [facility] Address [address] [place] [address] Care Team Providers Care Trim Mechanic Name Role Phone Non-Staff, Physician Primary Care [...] daily . Active fluticasone (FLONASE) 50 mcg/spray Durand, Suspension Administer 1 Durand in each nostril daily. 16 Gram 11 [...] on file Legal Sex Female 3:23 AM MOWING MACHINE OPERATOR Gender Identity Not on file Sexual [...] Tdap) 03/18/2026 Medical Devices Implanted Type Area Public Health Program Manager Device Identifier Shelf Expiration Date Model / Serial / Lot Log - PlumTV Ttnm Matrixmidface - 1 - Plate-L Oblique Matrixmidface 395 Implanted:Qty: 1 on 04/13/2011 at [facility] Plate Right: [employer] SYN[employer]ES-STRATEC - MAXIFACIAL .395 / / LOAD # [id number] Log - PlumTV Ttnm Matrixmidface - 1 - Plate Orb Rim Matrixmidface .343 Implanted:Qty: 1 on 04/13/2011 at [facility] Plate Right: [employer] SYN[employer]ES-STRATEC - MAXIFACIAL .503.343 / / LOAD # [id number] Log [id number] - Synthes Ttnm Matrixmidface - 1 - Screw Matrixmidface Sd 5mm .225 Implanted:Qty: 2 on 04/13/2011 at [facility] Screw Right: [employer] SYNTHES-STRATEC - MAXIFACIAL 04.503.225. 01 / / LOAD # [id number] Log [id number] - Synthes Ttnm Matrixmidface - 1 - Screw Matrixmidface Sd 6mm 04.503.226 Implanted:Qty: 4 on 04/13/2011 at [facility] Screw Right: [employer] SYN[employer]ES-STRATEC - MAXIFACIAL 04.503.226. 01 / / LOAD # [id number] Log [id number] - Synthes Ttnm Matrixmidface - 1 - Screw Matrixmidface Sd 4mm 04.503.224 Implanted:Qty: 6 on 04/13/2011 at [facility] Screw Right: [employer] SYNTHES-STRATEC - MAXIFACIAL 04.503.224. 01 / / LOAD # [id number] Log [id number] - Synthes Ttnm Matrixmidface - 1 - Screw Matrixmidface Emrgncy 4mm 04.503.234 Implanted:Qty: 1 on 04/13/2011 at [facility] Screw Right: [employer] SYN[employer]ES-STRATEC - MAXIFACIAL 04.503.234. 01 / / LOAD # [id number] Procedures Procedure Name Priority Date/Time Associated Diagnosis Comments XR DEXA BONE DENSITY AXIAL 1 OR MORE SITES Routine 07/19/2016 1:55 PM MOWING MACHINE OPERATOR Bariatric surgery status from Last 3 Months or Most Recently Relevant to Health Maintenance Results * XR DEXA BONE DENSITY AXIAL 1 OR MORE SITES (07/19/2016 1:55 PM MOWING MACHINE OPERATOR) Anatomical Region Laterality Modality Digital Radiogra phy 07/19/2016 1:55 PM MOWING MACHINE OPERATOR Impressions 07/19/2016 4:00 PM MOWING MACHINE OPERATOR IMPRESSION: Abnormal examination Bone density lies in [...] as clinically needed. Narrative 07/19/2016 4:00 PM MOWING MACHINE OPERATOR DEXA Evaluation of the Lumbar Spine and [...] Most Recently Relevant to Health Maintenance [place] [address] [place] [id number] [facility] DUAL COMPLETE [facility] PPO D-SNP Advance Directives For more information, please contact: [phone] * Full Code (Latest Code Status on [...] 10:48 AM 04/13/2011 1:44 PM Care Teams Trim Mechanic Relationship Specialty Start Date End Date Non-Staff, Physician NO ADDRESS ON FILE PCP - General 07/13/19
--- OUTSIDE RECORDS SUMMARY | 2025-05-02 17:24 | XMS_ITS | Patient Health Record ---
Author Organization [facility] Address [address] [place] [address] Care Team Providers Care Hospitalist Program Director Name Role Phone Girma MONTAÑO, Nghia Unavailable [...] Status W/U Status Risk Notes Problem Dyspnea (734466355) SOB (SHORTNESS OF BREATH) ON EXERTION (R06.02) Inactive confirmed Problem Constipation (15109053) CONSTIPATION, UNSPECIFIED CONSTIPATION TYPE (K59.00) Inactive confirmed [...] minutes, >50% counseling, Problem Lower abdominal pain (82217093) LOWER ABDOMINAL PAIN (R10.30) Inactive confirmed Plan Of Treatment No Information Insurance Providers Payer Name Payer Address Payer Phone Subscriber Number Group Number Insured Name Patient Relationship to Insured Coverage Start Date Coverage End Date [facility] MEDICARE PFFS [address] [address] [place] [address] [phone] [id number] BERNY BLUNT Self - patient is the insured Medical (General) History Surgical History Surgery Date(Month/Year) Bladder Repair, ProblemStatus: Active, Facial Fracture Repair, ProblemStatus: A ctive,
--- OUTSIDE RECORDS SUMMARY | 2025-05-02 17:24 | XMS_ITS | Encounter Summary ---
Author Organization [facility] [place] Address [address] [place] [address] Care Team Providers Care Body Finisher Name Role Phone Lizandro Madrid MD Primary Care Provider [phone] Encounter Details Date Type Department Care Team (Late st Contact Info) Description 10/29/[address] [facility] - Primary Care [address] [place] [address] Provider, MD Lynne [address] [place], [place] [id number] Social History Tobacco Use Types Packs/Day Years Used Date Smoking Tobacco: Unknown Alcohol Use Standard Drinks/Week Comments Defer 0 (1 standard drink = 0.6 oz pur e alcohol) PHQ-2 Answer Date Recorded PHQ-2 Score 0 07/03/2024 Comments Unknown Sex and Gender Information Value Date Recorded Sex Assigned at Not on file Legal Sex Female 3:23 PM CLEANER SIGNS Gender Identity Not on file Sexual Orientation [...] Total Score: 0 07/03/19 25 11:54 AM CLEANER SIGNS A fall risk assessment has been complete d for the patient 09/25/2024 7:53 AM CDT documented as of this encounter Care Teams Body Finisher Relationship Specialty Start Date End Date Lizandro Madrid MD [address] [address] PCP - General Internal Medicine 05/24/24 documented as of this encounter
--- OUTSIDE RECORDS SUMMARY | 2025-05-02 17:24 | XMS_ITS | Encounter Summary ---
Author Organization [facility] Address [address] [place] [address] Care Team Providers Care Company Accountant Name Role Phone Non-Staff, Physician Primary Care Provider Unava ilable Encounter Details Date Type Department Care Team (Late Contact Info) Description 12/09/2008 Outpatient Historical [facility] Keely Peña MD [address] [place] [address] Social History Tobacco Use Types Packs/Day Years Used Date Smoking Tobacco: Never Assessed Comments Unknown Sex and Gender Information Value Date Recorded Sex Assigned at Not on file Legal Sex Female 4:10 PM [employer] Gender Identity Not on file Sexual Orientation Not on file documented as of this encounter Plan of Treatment Upcoming Encounters Date Type Department Care Team (Late Contact Info) Description 09/26/2025 9:00 AM CDT Office Visit [facility] [place] [address] [place] [address] Jada Wan NP [facility] [address] [place] [address] documented as of this encounter Procedures Procedure [...] PATHOLOGY (12/09/2008 4:17 PM CDT) FINAL REPORT [address] [address] Patient: BERNY BLUNT : 1940 Procedure Date: 12/09/2008 Accession Date: 12/09/2008 Case No: [id number] Ordering Dr: KEELY PEÑA Case types AW, BW, FW, NW and SH are performed by [facility], [place], [place] SURGICAL PATHOLOGY & NON-GYNECOLOGIC CYTOPATHOLOGY REPORT [...] cm. All are submitted in block A1. [facility] 12.09.2008 06:03 pm Microscopic: The slides are labeled [id number], Berny Blunt. Sections of the random colon biopsy show multiple strips of colonic mucosa with no active inflammation, no intraepithelial lymphocytosis, and no thickened subepithelial collagen band. Crypt architecture is normal with no chronic architectural changes. The mucosa is essentially normal. /[facility] 12.10.2008 09:28 am Staging Form: No. ELECTRONIC SIGNATURE FOR NAVIN MENDOZA MD- 12/10/08 02:08 pm INTERFACE SYSTEM 12/09/2008 4:17 PM CDT us Keely Peña MD PATHOLOGY/CYTOLOGY ORDERABLES F inal Result Performing Organization Address [facility] Phone Number INTERFACE SYSTEM Refer to clinic/hospital department * CLOSTRIDIUM DIFFICILE TOXIN (12/09/2008 4:00 PM CDT) FINAL REPORT NO Clostridium difficile Toxin A or B detected by EIA. A negative result does not rule out C. difficile associated diarrhea or colitis. [facility] Stool specimen (specimen) 12/09/2008 4:00 PM CDT 12/09/2008 4:33 PM CDT us Keely Peña MD MICROBIOLOGY - GENERAL ORDERABL ES Final Result Performing Organization Address [facility] Phone Number INTERFACE SYSTEM Refer to clinic/hospital department [facility] CLIA# [id number] [address] [place], [place] [address] * C-REACTIVE PROTEIN (12/09/2008 3:03 PM CDT) CRP <0.2 0.0 - 0.8 mg/dL [facility] 12/09/2008 3:03 PM CDT 12/09/2008 3:03 PM CDT us Keely Peña MD CHEMISTRY ORDERABLES Final Resu lt Performing Organization Address [facility] de Phone Number INTERFACE SYSTEM Refer to clinic/hospital department [facility] CLIA# [id number] [address] [place] [address] * TRANSGLUTAMINASE IGA ANTIBODY (12/09/2008 3:03 PM CDT) TRANSGLUTAMINASE IGA AB <3 <5 U/mL [facility] Comment: Reference range: <5 U/mL Negative 5-8 U/mL Equivocal >8 U/mL Positive Lab test performed by: [facility]/[address] [address] VARUN JACKSON MD 12/09/2008 3:03 PM CDT 12/09/2008 3:10 PM CDT us Keely Peña MD CHEMISTRY ORDERABLES Final Resu lt Performing Organization Address City/[facility] de Phone Number INTERFACE SYSTEM Refer to clinic/hospital department [facility] CLIA# [id number] [address] [place] [address] * IGA (12/09/2008 3:03 PM CDT) Pathologist [facility] IGA 143.0 86.0 - 517.0 mg/dL [facility] 12/09/2008 3:03 PM CDT 12/09/2008 3:03 PM CDT us Keely Peña MD CHEMISTRY ORDERABLES Final Resu lt Performing Organization Address City/[facility] de Phone Number INTERFACE SYSTEM Refer to clinic/hospital department [facility] CLIA# [id number] [address] [place] [address] * TSH (12/09/2008 3:03 PM CDT) Pathologist [facility] TSH 0.76 0.27 - 4.20 uU/mL [facility] 12/09/2008 3:03 PM CDT 12/09/2008 3:03 PM CDT us Keely E Elwing MD CHEMISTRY ORDERABLES Final Resu lt Performing Organization Address [facility] Co de Phone Number INTERFACE SYSTEM Refer to clinic/hospital department [facility] CLIA# [id number] [address] [place] [address] * OVA AND PARASITE SCREEN (12/09/2008 2:15 PM CDT) PRELIMINARY REPORT Pending [facility] FINAL REPORT Concentration : No ova or parasites seen. Trichrome: No ova or parasites seen. [facility] Stool specimen (specimen) 12/09/2008 2:15 PM CDT 12/09/2008 4:33 PM CDT Narrative INTERFACE SYSTEM - 12/13/2008 10:09 AM CDT Performed by [facility] [address] Performed by [facility] [place] [address] us Keely Peña MD MICROBIOLOGY - GENERAL ORDERABL ES Final Result Performing Organization Address [facility] de Phone Number INTERFACE SYSTEM Refer to clinic/hospital department [facility] CLIA# [id number] [address] [place] [address] * FECAL LEUKOCYTES STAIN (12/09/2008 2:15 PM CDT) FINAL REPORT No WBC's seen. [facility] Stool specimen (specimen) 12/09/2008 2:15 PM CDT 12/09/2008 4:33 PM CDT us Keely Peña MD MICROBIOLOGY - GENERAL ORDERABL ES Final Result Performing Organization Address [facility] de Phone Number INTERFACE SYSTEM Refer to clinic/hospital department [facility] CLIA# [id number] [address] [place] [address] * STOOL CULTURE (12/09/2008 2:15 PM CDT) PRELIMINARY REPORT No Salmonella isolated. No Shigella isolated. No Escherichia coli serogroup O157:H7 isolated. [facility] FINAL REPORT No Salmonella isolated. No Shigella isolated. No Escherichia coli serogroup O157:H7 isolated. No Campylobacter isolated. [facility] Stool specimen (specimen) 12/09/2008 2:15 PM CDT 12/09/2008 4:33 PM CDT us Keely Peña MD MICROBIOLOGY - GENERAL ORDERABL ES Final Result INTERFACE SYSTEM Refer to clinic/hospital department [facility] CLIA# [id number] [address] [place] [address] documented in this encounter Visit Diagnoses Not on filedocumented in this encounter Additional Health Concerns Infection Onset Date Last Indicated Resolved Time R/O COVID-19 02/27/2022 02/27/2022 02/27/2022 5:19 PM CDT documented as of this encounter Care Teams Company Accountant Relationship Specialty Start Date End Date Non-Staff, Physician NO ADDRESS ON FILE PCP - General 07/13/19 documented as of this encounter
--- OUTSIDE RECORDS SUMMARY | 2025-05-02 17:24 | XMS_ITS | Clinical Summary ---
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 Gender Identity Not on file Sexual Orientation Not on file Last Filed Vital Signs Vital Sign Reading Time Taken Comments Blood Pressure 144/72 04/30/2025 9:17 AM VACUUM FORM OPERATOR Pulse 59 04/30/2025 9:17 AM VACUUM FORM OPERATOR Temperature 36.9 C (98.5 F) 04/30/2025 9:17 AM VACUUM FORM OPERATOR Respiratory Rate 15 04/30/2025 9:17 AM VACUUM FORM OPERATOR Oxygen Saturation 97% 04/30/2025 9:17 AM VACUUM FORM OPERATOR Inhaled Oxygen Concentration - - Weight 52.4 kg (115 lb 9.6 oz) 04/30/2025 9:17 A M VACUUM FORM OPERATOR Height 152.4 cm (5') 04/30/2025 9:17 AM VACUUM FORM OPERATOR Body Mass Index 22.58 04/30/2025 9:17 AM VACUUM FORM OPERATOR Plan of Treatment Health Maintenance Due Date Last Done Comments Medicare Annual Wellness 1940 Pneumococcal Vaccine: 50+ Years (1 of 2 - PCV) 1960 Td, Tdap Vaccines Adult 1959 Mammogram 1981 Shingrix (ZOSTER RECOMBINANT ) (1 of 2) 1991 RSV 60+ (1 - 1-dose 75+ series) 2016 Bone Density Scan (DXA Scan) 07/19/2019 07/19/2016 Influenza Vaccination (#1) 2025 Colonoscopy 04/17/2035 04/17/2025, 04/17/2025, 10/23/2024 HIB Vaccines Aged Out No longer [...] Recently Relevant to Health Maintenance Results * COLONOSCOPY (10/23/2024 3:58 PM CDT) us Historical Provider HEALTH MAINTENANCE Final Result from Last 3 Months or Most Recently Relevant to Health Maintenance Insurance [place] [place] [facility] Care Teams Bucket Wash Operator Relationship Specialty Start Date End Date Lizandro Madrid MD [address] [facility] [address] [place] [address] PCP - General Internal Medicine 05/24/24
--- OUTSIDE RECORDS SUMMARY | 2025-05-02 17:24 | XMS_ITS | Clinical Summary ---
Author Organization [facility] Address [address] [facility] [address] Dr[address] Anthony: Epic Prelude ADT GUY WADE [address] Care Team Providers Care Rag Cutting Machine Feeder Name Role Phone Non-Staff, Physician Primary [...] ORAL) Take 1 Tablet by mouth daily. 03/02/20 19 Active montelukast (SINGULAIR) 10 mg tablet Take 1 Tablet (10 mg) by mouth daily at bedtime For allergies. 30 Tablet 3 01/05/20 18 Active propranoloL (INDERAL) 40 mg tablet Take 40 mg by mouth 2 times daily. Active docusate sodium (COLACE) 100 mg capsule Take 100 mg by mouth 2 times daily. Active butalbital-acet aminophen-caffe ine (FIORICET) 50-325-40 mg tabletIndicatio ns:Chronic tension-type headache, intractable Take 1 Tablet by mouth every 6 hours as needed for Migraine. 15 Tablet 02/29/20 22 Active lisinopriL (PRINIVIL) 30 mg tablet Take [...] as needed for Chest Pain. 3 Tablet 05/18/20 Active acidophillus citrus pectin 25 million cell/100 mg (LACTINEX) 25 million cell -100 mg Tablet Take 2 Tablets by mouth daily. Active loratadine (CLARITIN) 10 mg tablet Take 10 mg by mouth daily. Active multivitamin (DAILY-YOSSI) tablet Take 1 Tablet by mouth daily. Active citalopram (CeleXA) 10 mg tablet 03/12/20 25 Active citalopram (CeleXA) 20 mg tablet 03/25/20 25 Active gabapentin (NEURONTIN) 100 mg capsule 03/18/20 25 Active aluminum - magnesium - simethicone (MYLANTA) 200-200-20 mg/5 mL Suspension Take 10 mL by mouth every 6 hours as needed for Dyspepsia. Active polyethylene glycol 3350 (MIRALAX) 17 gram/dose Powder Take by mouth daily. Dissolve in 8 ounces of fluid and drink entire liquid Active clopidogreL (PLAVIX) 75 mg Tablet 03/04/20 25 Active Rexulti 0.5 mg Tablet 03/25/20 25 Active sennosides-docu sate sodium (Senna Plus) 8.6-50 mg Capsule Take by mouth 2 times daily. Active simethicone 125 mg Tablet, Chewable Take 1 Tablet (125 mg) by mouth see administration instructions. Chew one after evening round of Golytely, chew two after morning round of Golytely. 3 Tablet 04/04/20 25 Active PEG-Electrolyte Soln (NULYTELY) 420 g Recon Soln Take 4,000 mL by mouth one time only for 1 dose. 4000 mL 04/04/20 25 025 polyethylene glycol 3350 (MIRALAX) 17 gram/dose Powder Take 7 Scoops (119 Grams) by mouth one time only for 1 dose. Dissolve in 64 ounces ounces of Gatorade (not red) and drink entire liquid 119 Gram 04/15/20 25 025 Active Problems Problem Noted Date Diagnosed Date Diverticulitis 08/24/2024 Lipoma of colon 08/24/2024 Mild Alzheimer's dementia [facility] behavioral disturbance, psychotic disturbance, mood disturbance, or [...] Encounters Date Type Department Care Team Description 04/19/2025 Results Follow-Up [facility] [place] [address] [facility] [facility] [address] [place] [phone] Jude Tello MD PATHOLOGY 04/17/2025 10:34 AM CDT Anesthesia Event [facility]oscopy [address] [place] [phone] Yuriy Maurer DO Evans, Miranda Kay, CRNA 04/17/2025 9:40 AM CDT - 04/17/2025 10:00 AM CDT Surgery [facility] Endoscopy [address] [place] [address] Jude Tello MD COLONOSCOPY 04/17/2025 7:55 AM CDT - 04/17/2025 12:05 PM CDT Hospital Encounter [facility] [address] [place] [address] Jude Tello MD Discharge Disposition: Home or Self Care 04/08/2025 Telephone [facility] [address] Jude Tello MD Results 04/04/2025 8:40 AM CDT Office Visit [address] [address] Jude Tello MD Colonic mass (Primary Dx) 04/01/2025 Results Follow-Up [address] [address] Jada Wan NP POC URINALYSIS DIPSTICK AUTOMATED, CYTOLOGY, NON GYNE 03/28/2025 8:30 AM CDT Office Visit [address] [address] Jada Wan NP Gross hematuria (Primary Dx) 03/11/[address] [address] Provider, Abstract 03/05/2025 8:40 AM CDT - 03/05/2025 11:59 PM CDT Hospital Encounter [facility] [address] [address] Ambulance, [facility] Discharge Disposition: [facility] 02/05/2025 External Device Data STL ABSTRACTION Provider, [...] who hurts you emotionally and/or physically? No 04/17/2025 Food Insecurity Answer Date Recorded Patient needs follow up regardin 10/10/2024 Transportation Needs Answer Date Record ed Patient needs follow up regardin 10/10/2024 Housing Stability Answer Date Recorded Social/Environmental Concerns No concerns Utility Needs Answer Date Recorded Patient needs follow up regardin 10/10/2024 Comments No Sex and Gender Information Value Date Recorded Sex Assigned at Not on file Legal Sex Female 4:10 PM CORPORATE RELATIONS MANAGER Gender Identity Not on file Sexual Orientation Not on file Last Filed Vital Signs Vital Sign Reading Time Taken Comments Blood Pressure 152/95 04/17/2025 11:39 AM CDT Pulse 75 04/17/2025 11:39 AM CDT Temperature 36.8 C (98.2 F) 08/25/2024 7:23 AM CORPORATE RELATIONS MANAGER Respiratory Rate 27 04/17/2025 11:39 AM CDT Oxygen Saturation 98% 04/17/2025 11:39 AM CDT Inhaled Oxygen Concentration - - Weight 52.8 kg (116 lb 6.4 oz) 04/04/2025 8:36 A M CDT Height 154.9 cm (5' 1 ) 04/04/2025 8:36 AM CDT Body Mass Index 21.99 04/04/2025 8:36 AM CDT Plan of Treatment Upcoming Encounters Date Type Department Care Team (Late st Contact Info) Description 09/26/2025 9:00 AM CDT Office Visit [facility] [place] [phone] Jada Wan, MJ [address] [facility] [address] [place] [address] Health Maintenance Due Date Last Done Comments PNEUMOCOCCAL VACCINE 50+ YEA RS (1 of 2 - PCV) 1960 ZOSTER VACCINE (1 of 2) 1991 RSV VACCINE (60+ or ) (1 - 1-dose 75+ series) 2016 OSTEOPOROSIS SCREENING 07/19/2021 07/19/2016, 2016 INFLUENZA VACCINE (#1) 2025 , 04/09/2022, 04/29/2015, Additional history exists COVID-19 Vaccine ( - 2023-2 5 season) 2025 04/04/2024, 05/20/2021, 10/11/2020, Additional history exists DTAP/TDAP/TD VACCINES (2 - T d or Tdap) 03/18/2026 03/18/2016 COLORECTAL SCREENING 04/17/2030 04/17/2025, 04/17/2025, 10/23/2024, Additional history exists Medical Devices Implanted Type Area Telecommunications Project Manager Device Identifier Shelf Expiration Date Model / Serial / Lot Log - Synthes Ttnm Matrixmidface - 1 - Plate Orb Rim Matrixmidface [id number] Implanted:Qty: 1 on 04/13/2011 Plate Right: Zygoma SYNTHES-STRATEC - MAXIFACIAL .503.343 / / LOAD # [id number] Log - [employer] Ttnm Matrixmidface - 1 - Plate-L Oblique Matrixmidface 503.395 Implanted:Qty: 1 on 04/13/2011 Plate Right: Zygoma SYNTHES-STRATEC - MAXIFACIAL 04.503.395 / / LOAD # [id number] Log - [employer] Ttnm Matrixmidface - 1 - Screw Matrixmidface Emrgncy 4mm .234 Implanted:Qty: 1 on 04/13/2011 Screw Right: Zygoma SYNTHES-STRATEC - MAXIFACIAL .503.234. 01 / / LOAD # [id number] Log [id number] - Synthes Ttnm Matrixmidface - 1 - Screw Matrixmidface Sd 4mm .503.224 Implanted:Qty: 6 on 04/13/2011 Screw Right: Zygoma SYNTHES-STRATEC - MAXIFACIAL 04.503.224. 01 / / LOAD # [id number] Log [id number] - Synthes Ttnm Matrixmidface - 1 - Screw Matrixmidface Sd 5mm 04.503.225 Implanted:Qty: 2 on 04/13/2011 Screw Right: Zygoma SYNTHES-STRATEC - MAXIFACIAL 04.503.225. 01 / / LOAD # [id number] Log [id number] - Synthes Ttnm Matrixmidface - 1 - Screw Matrixmidface Sd 6mm 04.503.226 Implanted:Qty: 4 on 04/13/2011 Screw Right: Zygoma SYNTHES-STRATEC - MAXIFACIAL 04.503.226. 01 / / LOAD # [id number] Procedures Procedure Name Priority Date/Time Associated Diagnosis Comments COLONOSCOPY REPORT 04/17/2025 1:19 PM CDT PATHOLOGY Pathology 04/17/2025 10:47 AM CDT ANESTHESIA AIRWAY Routine 04/17/2025 10:41 AM CDT IA COLONOSCOPY FLX DX W/COLLJ SPEC WHEN PFRMD 04/17/2025 9:40 AM CDT Colonic mass Case Notes Procedure :COLON REMAINING ON PLAVIX PER DR TELLO, [facility] 04/04 Special Notes: 2-day bowel preparation. Dx: Colonic mass BT:plavix (clopidrogrel) 5 days Currently on Plavix; discontinuation not necessary unless advised by a partner. Per Dr Tello BT managed by: Diabetic: YES Diabetic/WT med:NONE LOC & REASON:Hosp/Oxygen BMI:22.01 Last Procedure date & location 10/2024/[facility] Referring Provider Lizandro Chavez MD GI Doc:Dr Jude Tello Insurance: [facility] Last GI appt 04/04/25 CYTOLOGY, NON GYNE Routine 03/28/2025 9:19 AM CDT Gross hematuria POC URINALYSIS DIPSTICK AUTOMATED Routine 03/28/2025 8:35 AM CDT XR DEXA BONE DENSITY AXIAL 1 OR MORE SITES Routine 07/19/2016 1:55 PM CORPORATE RELATIONS MANAGER Bariatric surgery status from Last 3 Months or Most Recently Relevant to Health Maintenance Results * COLONOSCOPY REPORT (04/17/2025 1:19 PM CDT) Narrative Procedure Note Jude Tello MD - 04/17/2025 1:19 PM CDT [facility] GI Patient Name: Yaquelin Arango Procedure Date: 04/17/2025 Date of : 1940 Admit Type: Outpatient Age: 84 Attending MD: Jude Tello , , Procedure: Colonoscopy Indications: Therapeutic procedure for colon polyps Providers: Jude Tello Referring MD: Medicines: Monitored Anesthesia Care Complications: No immediate complications. Procedure: After I obtained informed consent, the scope was passed under direct vision. Throughout the procedure, the patient's blood pressure, pulse, and oxygen saturations were monitored continuously. The Colonoscope was introduced through the anus and advanced to the cecum, identified by appendiceal orifice and ileocecal valve. The colonoscopy was performed without difficulty. The patient tolerated the procedure well. The quality of the bowel preparation was evaluated using the BBPS ([place] Bowel Preparation Scale) with scores of: Right Colon = 3, Transverse Colon = 3 and Left Colon = 3 (entire mucosa seen well with no residual staining, small fragments of stool or opaque liquid). The total BBPS score equals 9. Estimated Blood Loss: Estimated blood loss was minimal. Findings: There was a large lipoma, in the sigmoid colon. Multiple diverticula were found in the sigmoid colon. A greater than 50 mm polyp was found in the ascending colon. The polyp was flat. Preparations were made for mucosal resection. Demarcation of the lesion was performed with high-definition white light to clearly identify the boundaries of the lesion. EverLift was injected to raise the lesion. Piecemeal mucosal resection using a cold snare was performed. Resection and retrieval were complete. Resected tissue margins were examined and clear of polyp tissue. A diffuse area of moderate melanosis was found in the entire colon. Two sessile polyps were found in the transverse colon and ascending colon. The polyps were small (4-6 mm) in size. These polyps were removed with a cold snare. Resection and retrieval were complete. The exam was otherwise without abnormality on direct and retroflexion views. Impression: - Large lipoma in the sigmoid colon. - Diverticulosis in the sigmoid colon. - One greater than 50 mm polyp in the ascending colon, removed with mucosal resection. Resected and retrieved. - Melanosis in the colon. - Two small (4-6 mm) polyps in the transverse colon and in the ascending colon, removed with a cold snare. Resected and retrieved. - The examination was otherwise normal on direct and retroflexion views. - Mucosal resection was performed. Resection and retrieval were complete. Recommendation: - Await pathology results. plan for no surveillance at age and comorbidities Jude Tello 04/17/2025 1:18:50 PM Number of Addenda: 0 Note Initiated On: 04/17/2025 10:17 AM Scope Withdrawal Time 0 hours 37 minutes 14 seconds Scope In: 10:41:16 AM Scope Out: 11:21:46 AM [address] [place], [place] Jude Tello MD GI PROCEDURE ORDERABLES Final Result * PATHOLOGY (04/17/2025 10:47 AM CDT) CASE REPORT Surgical Pathology Report Case: [id number] Authorizing Provider: Jude Tello MD Collected: 04/17/2025 10:47 AM Ordering Location: [facility] Received: 04/17/2025 03:13 PM Endoscopy Pathologist: Michele Luciano MD Specimens: A) - Colon, right, polyp B) - Colon, ascending, polyp 12:49 PM CDT [facility] FINAL DIAGNOSIS A. Colon polyp, right, polypectomy - Fragments of colonic mucosa without diagnostic pathologic abnormality B. Colon polyp, ascending, endoscopic mucosal resection - Fragments of adenomatous polyp Michele Luciano MD [id number] 12:49 PM CDT [facility] at 1249 CDT GROSS DESCRIPTION A. Received in formalin labeled Nba -right colon polyp are multiple fragments of tissue, 1.5 x 1.5 x 0.3 cm in aggregate. The specimen is submitted in toto in A1. B. Received in formalin labeled Nba -ascending colon polyp, EMR are multiple of tissue, 2.0 x 2.0 x 0.2 cm in aggregate. The specimen is submitted in toto in B1. Grossed by: Jie Story MS, PA (ASCP)CM 12:49 PM CDT [facility] OPERATIVE PROCEDURE 1: COLONOSCOPY 12:49 PM CDT [facility] CLINICAL INFORMATION Colonic mass 12:49 PM CDT [facility] COMMENT The [employer] voice-activated dictation system may have been used in the creation of this report. Inherent to this system is the possibility of errors in syntax, grammar, punctuation, or other areas that could impact interpretation. If there are interpretive questions about the report, please contact the performing pathologist. Unless gross only is specified in the diagnosis, the microscopic examination substantiates the above cited diagnosis. The performance characteristics of all immunohistochemical stains cited in this report (if any) were determined by the [facility] of [facility] in compliance with CLIA'88 regulations. Some of these tests rely on the use of analyte specific reagents and are subject to specific labeling requirements by the FDA. All controls show appropriate reactivity. This testing was developed by the [facility] of [facility]. It has not been cleared or approved by the FDA. The FDA has determined that such clearance or approval is not necessary. 12:49 PM CDT [facility] Tissue (Colon, right) Collection / Unknown 04/17/2025 10:47 AM CDT 04/17/2025 3:13 PM CDT Tissue specimen (specimen) SPECIMEN FROM COLON / Unknown 04/17/2025 10:55 AM CDT 04/17/2025 3:13 PM CDT Jude Tello MD PATHOLOGY/CYTOLOGY ORDE ABDOUL Final Result [facility] CLIA # [id number] [address] [place] [address] [place] [address] * Airway (04/17/2025 10:41 AM CDT) Narrative Stacia Peoples CRNA - 04/17/2025 10:41 AM CDT Stacia Peoples CRNA 04/17/2025 10:41 AM Airway Date/Time: 04/17/2025 10:41 AM Location: Other [facility] Non OR Location: GI Plan: elective intubation Patient Identity Confirmed by: Verbally with patient Airway: not difficult Staffing Performed: Anesthesiologist (/) and [employer] OFFICER/CAA Authorized by: Yuriy Maurer DO Performed by: Stacia Peoples CRNA Indications and Patient Condition: Sedation Level: sedation Final Airway Details: Final Airway Type: Mask Yuriy Maurer DO PROCEDURE/MINOR SURGICA L ORDERABLES Final Result * CYTOLOGY, NON GYNE (03/28/2025 9:19 AM CDT) CASE REPORT Medical Cytology Report Case: [id number] Authorizing Provider: Jada Wan NP Collected: 03/28/2025 09:19 AM Ordering Location: [facility] Received: 03/28/2025 12:34 PM Pathologist: Lizette Johnson MD Specimen: Urine, clean catch 10:50 AM CDT [facility] FINAL DIAGNOSIS A. Urine, ThinPrep - Negative for high-grade urothelial carcinoma - Numerous neutrophils present Lizette Johnson MD [id number] 10:50 AM CDT [facility] at 1050 CDT GROSS DESCRIPTION A. Urine - 20 ml cloudy yellow fluid submitted for ThinPrep 10:50 AM CDT [facility] CLINICAL INFORMATION R31.0 - Gross hematuria [ICD-10-CM] 10:50 AM CDT [facility] COMMENT The Dragon voice-activated dictation system may have been used in the creation of this report. Inherent to this system is the possibility of errors in syntax, grammar, punctuation, or other areas that could impact interpretation. If there are interpretive questions about the report, please contact the performing pathologist. Unless gross only is specified in the diagnosis, the microscopic examination substantiates the above cited diagnosis. The performance characteristics of all immunohistochemical stains cited in this report (if any) were determined by the [facility] of [facility] in compliance with CLIA'88 regulations. Some of these tests rely on the use of analyte specific reagents and are subject to specific labeling requirements by the FDA. All controls show appropriate reactivity. This testing was developed by the [facility] of [facility]. It has not been cleared or approved by the FDA. The FDA has determined that such clearance or approval is not necessary. 10:50 AM CDT [facility] Body fluid URINE SPECIMEN OBTAINED BY CLEAN CATCH PROCEDURE / Unknown Collection / Unknown 03/28/2025 9:19 AM CDT 03/28/2025 12:34 PM CDT us Jada Wan PROJECT ADMINISTRATIVE ASSISTANT PATHOLOGY/CYTOLOGY ORDERABLE S Final Result [facility] CLIA # [id number] [address] [place] [id number] * (ABNORMAL) POC URINALYSIS DIPSTICK AUTOMATED (03/28/2025 8:35 AM CDT) COLOR UA Yellow Pale to Dark Yellow 03/28/2025 8:35 AM CDT [facility] UA Clear Clear 03/28/2025 8:35 AM CDT [facility] GLUCOSE UA Negative Negative 03/28/2025 8:35 AM CDT [facility] BILIRUBIN UA Negative Negative 03/28/2025 8:35 AM CDT [facility] KETONES UA Negative Negative 03/28/2025 8:35 AM CDT [facility] BLOOD UA Negative Negative 03/28/2025 8:35 AM CDT [facility] PH UA 6.0 5.0 - 8.0 03/28/2025 8:35 AM CDT [facility] PROTEIN UA Negative Negative 03/28/2025 8:35 AM CDT [facility] UROBILINOGEN UA 0.2 <2.0 mg/dL 8:35 AM CDT [facility] NITRITE UA Negative Negative 03/28/2025 8:35 AM CDT [facility] LEUKOCYTE ESTERASE UA 2+(A) Negative 03/28/2025 8:35 AM CDT [facility] SPECIFIC GRAVITY UA POC 1.015 1.000 - 1.030 03/28/2025 8:35 AM CDT [facility] Urine 03/28/2025 8:35 AM CDT 03/28/2025 8:38 AM CDT Narrative [facility] - 03/28/2025 8:35 AM CDT Recommend Urine Microcopic ([id number])and Urine Culture ([id number]) if indicated. us Jada Wan NP POINT OF CARE TESTING Final Result [facility]# [id number] [address] [place] [id number], * XR DEXA BONE DENSITY AXIAL 1 OR MORE SITES (07/19/2016 1:55 PM CORPORATE RELATIONS MANAGER) Anatomical Region Laterality Modality Other Impressions 07/19/2016 4:00 PM CORPORATE RELATIONS MANAGER Abnormal examination Bone density lies in the [...] as clinically needed. Narrative 07/19/2016 4:00 PM CORPORATE RELATIONS MANAGER DEXA Evaluation of the Lumbar Spine and [...] Insurance MEDICARE PART A [place] B [place] Advance Directives For more information, please contact: [phone] * Full Code (Latest Code Status on File) Date Activated Date Inactivated Comments 04/17/2025 9:47 AM 04/17/2025 2:09 PM * Full Code Date Activated Date Inactivated Comments 08/24/2024 7:53 PM 08/25/2024 1:59 PM * Full Code Date Activated Date Inactivated Comments 02/28/2022 2:42 AM 02/28/2022 4:26 PM Care Teams Rag Cutting Machine Feeder Relationship Specialty Start Date End Date Non-Staff, Physician NO ADDRESS ON FILE PCP - General 07/13/19
[2025-05-02 18:22] VITALS: BP 169/81; O2SAT 98
[2025-05-02 19:07] VITALS: BP 164/86; PULSE 88; O2SAT 94
== END 2025-05-02 19:08 | disposition home or self-care (01) ==
PROVIDERS: Emergency Provider Emergency Medicine; PCP Internal Medicine
DX: S09.90XA Unspecified injury of head, initial encounter (principal); Z79.02 Long term (current) use of antithrombotics/antiplatelets; Z87.891 Personal history of nicotine dependence; E78.2 Mixed hyperlipidemia; I10 Essential (primary) hypertension; J44.9 Chronic obstructive pulmonary disease, unspecified; W19.XXXA Unspecified fall, initial encounter
CPT/HCPCS: 70450; 72125; 99284